=== PATIENT | female | born 1940 | race Caucasian/White ===

== ENCOUNTER 2019-12-10 09:08 | Outpatient (CLI) | payer MEDICARE, OTHER, SELFPAY ==
--- NOTE | 2019-12-10 | US_ITS ---
WS: [id number] ULTRASOUND RENAL TECHNIQUE: Ultrasound examination of both kidneys. CLINICAL INFORMATION: LOWER ABDOMINAL PAIN COMPARISON: None. FINDINGS: RIGHT: Right lower pole renal cyst measuring 3.1 x 2.1 x 2.6 cm Moderate renal cortical atrophy Echogenicity: Normal Hydronephrosis: None. Perinephric fluid: None. Right kidney measures: 10.5 cm x 3.7 cm x 4.3 cm. LEFT: Left upper pole renal cyst measuring 2.0 x 1.9 x 1.8 cm Moderate renal cortical atrophy. Echogenicity: Normal. Hydronephrosis: None. Perinephric fluid: None. Left kidney measures: 9.6 cm x 5.0 cm x 4.1 cm. Normal visualized aorta. Normal bladder. US/US renal BI* [id number] IMPRESSION: 1. No hydronephrosis in either kidney. Moderate renal cortical atrophy. 2. Simple bilateral renal cysts largest in the right measuring 3.1 cm. 3. Normal bladder.
== END 2019-12-10 09:09 | disposition home or self-care (01) ==
LOC: RADOUTREAD 11:35
PROVIDERS: Family Provider Family Medicine; PCP Family Medicine; Visit Provider Family Medicine
DX: Z76.89 Persons encountering health services in other specified circumstances (principal)

== ENCOUNTER 2020-04-21 08:08 | Outpatient (CLI) | payer MEDICARE, OTHER, SELFPAY ==
[2020-04-21 08:25] VITALS: BMI 27.4
--- NOTE | 2020-04-21 08:37 | ECG_ITS ---
NAME OF STUDY: LEXISCAN SESTAMIBI STRESS TEST INDICATION: Chest Pain LEXISCAN STRESS TEST ORDERING PHYSICIAN: Ezequiel CLINICAL INFORMATION: Chest pain INTERPRETATION: 1. The patient was brought to the laboratory where Lexiscan was infused over 20 seconds. The resting blood pressure was 181/93. Maximum blood pressure was 181/93. The resting heart rate was 79 beats per minute. The maximum heart rate is 97 beats per minute. 2. The baseline electrocardiogram reveals sinus rhythm with lack of R waves leads V1 through V3. 3. With Lexiscan infusion, there were no ST segment changes to suggest ischemia. 4. The patient experienced no symptoms or arrhythmias during the examination. CONCLUSION: 1. Unremarkable Lexiscan infusion. 2. Nuclear imaging to follow. Electronically Signed On 04-21-2020 10:58:05 CDT by Gerald Nieves M.D. [email or web address]
--- NOTE | 2020-04-21 08:38 | NMCV_ITS ---
NM raymond perf SPECT r/s* [id number] Latosha Lozano Age: 79 Gender: F : 1940 Exam Date: 04/21/2020 09:40 Ordering Phys: Gerald Nieves MD ([email or web address]) Technologist: MARICRUZ Gross Exam Location: [facility] Indications: CHEST PAIN STRESS TEST Please see separate stress test report in [facility] for full findings IMAGE PROTOCOL Rest/Stress 1 Lexiscan Day Radiopharmaceutical Dose (mCi) Administration Site Administered by Rest: Tc-99m 10.9 IV MARICRUZ Gaming Sestamibi Stress:Tc-99m 32.5 IV MARICRUZ Gaming Sestamibi Rest: 21-Apr-2020 60 Discovery 630 Stress: 21-Apr-2020 30 Discovery 630 0.4mg Lexiscan. Images obtained in supine and prone position. SPECT RESULTS Technical Quality: Excellent Raw Data Analysis: Normal Image Corrections: No attenuation or motion correction applied Summed Stress Score: 0 Summed Rest Score: 0 Summed Difference Score: 0 PERFUSION FINDINGS SPECT images demonstrate homogeneous tracer distribution throughout the myocardium. FUNCTIONAL RESULTS (calculated via Gated SPECT) Stress Image LV EF (%): 83 Stress EDV (mL):35 TID: 0.75 Stress ESV (mL):6 Rest Image LV EF (%): 83 FUNCTIONAL FINDINGS: There is normal left ventricular systolic function. IMPRESSIONS Myocardial perfusion imaging is normal and low probability for obstructive coronary artery disease. EKG segment will be documented separately. Hansel Ruff MD (Electronically Signed) Final Date: 21 April 2020 17:11 S
--- NOTE | 2020-04-21 10:02 | SUR.PREOP ---
Patient reports no pain or discomfort prior to the start of the procedure.
[2020-04-21] MEDS: regadenoson 0.4 Mg/5 ml Syringe IVP (10:17)
[2020-04-21 10:23] VITALS: BP 153/62; PULSE 97
== END 2020-04-21 08:09 | disposition home or self-care (01) ==
LOC: RAD 08:12 → CDL 08:24
PROVIDERS: Family Provider Family Medicine; PCP Family Medicine; Visit Provider Internal Medicine Cardiovascular Disease
DX: R07.9 Chest pain, unspecified (principal)
CPT/HCPCS: 78452; 93017; A9500; J2785

== ENCOUNTER 2020-05-16 12:53 | Outpatient (CLI) | payer MEDICARE, OTHER, SELFPAY ==
--- NOTE | 2020-05-16 13:09 | XRR_ITS ---
PROCEDURE INFORMATION: Exam: XR Chest, 2 Views Exam date and time: 05/16/2020 1:10 PM Age: 79 years old Clinical indication: Shortness of breath; Chest pain; Type not specified TECHNIQUE: Imaging protocol: XR of the chest Views: 2 views. COMPARISON: CR Chest 2 views* [id number] 12/25/2018 1:07 PM FINDINGS: Lungs: Opacification in the bilateral upper lobes of the lung is again identified. No acute pneumonia or edema. Pleural space: Unremarkable. No pleural effusion. No pneumothorax. Heart/Mediastinum: Unremarkable. No cardiomegaly. Bones/joints: There is compression deformity of a midthoracic vertebral body as before. XR/XR chest 2V* [id number] IMPRESSION: There are no acute concerning abnormalities.
[2020-05-16 13:47] LABS: Basophils # 0.1 10^3/uL (0.0-0.1); Basophils % 0.7 %; Eosinophils # 0.4 10^3/uL (0.0-0.8); Eosinophils % 4.1 %; Hematocrit 39.6 % (37.0-47.0); Hemoglobin 12.6 g/dL (11.5-15.3); Lymphocytes # 1.7 10^3/uL (0.8-4.8); Lymphocytes % 20.5 %; Mean Corpuscular HGB Conc 31.8 g/dL (30.0-36.0); Mean Corpuscular Hemoglobin 31.3 pg (28.0-34.0); Mean Corpuscular Volume 98.5 fL (81-99); Mean Platelet Volume 9.7 fL (7.4-10.4); Monocytes % 11.7 %; Neutrophils # 5.3 10^3/uL (1.8-7.7); Neutrophils % 62.8 %; Nucleated Red Blood Cells % 0 %; Platelet Count 275 10^3/cmm (130-400); Red Blood Count 4.02 10^6/uL (4.1-5.3); Red Cell Distribution Width 14.3 % (12.1-15.1); White Blood Count 8.5 10^3/uL (4.0-10.0)
[2020-05-16 14:47] LABS: NT Pro B Type Natriuretic Pept 180 pg/mL (0-450)
[2020-05-17 18:15] LABS: Bermuda Class 0; Bermuda Grass (G2) Ige <0.10 kU/L; Cat Dander (E1) Ige <0.10 kU/L; Cat Dander Class 0; Common Ragweed (Short) (W1) Ig <0.10 kU/L; Dog Dander (E5) Ige <0.10 kU/L; Dog Dander Class 0; Elm (T8) Ige <0.10 kU/L; Elm Class 0; English Plantain (W9) Ige <0.10 kU/L; English Plantain Class 0; Immunoglobulin E 11 kU/L (<OR=114); Johnson Grass (G10) Ige <0.10 kU/L; Johnson Grass Cl 0; June Grass Class 0; June Grass(Kentucky Blue) (G8) <0.10 kU/L; Lamb'S Quarters (Goose Foot) <0.10 kU/L; Lamb'S Quarters Class 0; Maple (Box Elder) (T1) Ige <0.10 kU/L; Maple Class 0; Meadow Fescue (G4) Ige <0.10 kU/L; Meadow Fescue Class 0; Oak (T7) Ige <0.10 kU/L; Oak Class 0; Orchard Grass (Cocksfoot) (G3) <0.10 kU/L; Perennial Rye Grass (G5) Ige <0.10 kU/L; Perennial Rye Grass Class 0; Ragweeed Class 0; Rough Marsh Elder (W16) Ige <0.10 kU/L; Rough Marsh Elder Class 0; Sweet Vernal Class 0; Sweet Vernal Grass (G1) Ige <0.10 kU/L; Timothy Grass (G6) Ige <0.10 kU/L; Timothy Grass Class 0
[2020-05-18 16:56] LABS: Alternaria Alternata (M6) Ige <0.10 kU/L; Alternaria Class 0; D. Farinae Class 0; Dermatophagoides Class 0; Dermatophagoides Farinae (D2) <0.10 kU/L; Dermatophagoides Pteronyssinus <0.10 kU/L; House Dust (Greer) (H1) Ige <0.10 kU/L; House Dust (Hollister- Stier) <0.10 kU/L; House Dust Class 0; Mucor Racemosus Class 0; Penicillium Class 0; Penicillium Notatum (M1) Ige <0.10 kU/L
[2020-05-23 21:14] LABS: Aspergillus Fumigatus, Igg Ab, 12.8 mg/L (<=102)
== END 2020-05-16 12:54 | disposition home or self-care (01) ==
LOC: RAD 12:59
PROVIDERS: Family Provider Family Medicine; PCP Family Medicine; Visit Provider Internal Medicine Critical Care Medicine
DX: J45.909 Unspecified asthma, uncomplicated (principal); R06.02 Shortness of breath; R07.9 Chest pain, unspecified
CPT/HCPCS: 71046; 82785; 83880; 85025; 86003

== ENCOUNTER 2020-05-24 07:00 | Outpatient (CLI) | payer MEDICARE, OTHER, SELFPAY ==
--- NOTE | 2020-05-24 14:06 | PFTS_ITS ---
Date of Study:05/24/20 Date of Dictation: MECHANICS: Forced vital capacity (FVC) is reduced. Forced expiratory volume in one second (FEV1) is reduced. FEV1/FVC is normal. FLOW VOLUME LOOP: There is no peak flow in the forced expiratory loop. LUNG VOLUMES: Total lung capacity (TLC) is normal. Residual volume (RV) is increased. DIFFUSING CAPACITY FOR CARBON MONOXIDE: Mildly reduced. INTERPRETATION: The pulmonary function tests are consistent with nonspecific ventilatory limitation. Spirometry is consistent with mild restriction however the total lung capacity is normal. Gas exchange (DLCO) is mildly reduced. MTDD
== END 2020-05-24 07:01 | disposition home or self-care (01) ==
LOC: RT 07:05
PROVIDERS: PCP Family Medicine; Visit Provider Internal Medicine Critical Care Medicine
DX: R06.02 Shortness of breath (principal)
CPT/HCPCS: 94010; 94726; 94729

== ENCOUNTER → 2020-10-30 11:32 | Outpatient (BNVA) | payer MEDICARE, OTHER, SELFPAY | PROVIDERS: PCP Family Medicine; Visit Provider Specialist | DX: M25.562 Pain in left knee (principal) | CPT/HCPCS: 73560; 73565 ==

== ENCOUNTER → 2021-05-29 10:30 | Outpatient (BNVA) | payer MEDICARE, OTHER, SELFPAY | PROVIDERS: PCP Family Medicine; Referring Provider Internal Medicine Critical Care Medicine; Visit Provider Anesthesiology Pain Medicine | DX: M79.18 Myalgia, other site (principal); M54.6 Pain in thoracic spine; R07.89 Other chest pain; Z87.891 Personal history of nicotine dependence | CPT/HCPCS: 20553; 99204; J1030; J3490 ==

== ENCOUNTER → 2021-06-26 10:35 | Outpatient (BNVA) | payer MEDICARE, OTHER, SELFPAY | PROVIDERS: PCP Family Medicine; Visit Provider Anesthesiology Pain Medicine | DX: G89.29 Other chronic pain (principal); M79.18 Myalgia, other site; M54.6 Pain in thoracic spine; R07.89 Other chest pain | CPT/HCPCS: 20553; 99213; J1030; J3490 ==

== ENCOUNTER 2021-07-04 09:21 | Outpatient (RCR) | payer MEDICARE, OTHER, SELFPAY | END 2021-07-17 23:59 | disposition home or self-care (01) | LOC: SPT 09:21 | PROVIDERS: PCP Family Medicine; Referring Provider Anesthesiology Pain Medicine; Visit Provider Anesthesiology Pain Medicine | DX: M54.5 Low back pain (principal); G89.29 Other chronic pain | CPT/HCPCS: 97110; 97161 ==

== ENCOUNTER → 2022-01-24 15:39 | Outpatient (BNVA) | payer MEDICARE, OTHER, SELFPAY | PROVIDERS: PCP Family Medicine; Visit Provider Internal Medicine Critical Care Medicine | DX: J45.909 Unspecified asthma, uncomplicated (principal); J44.9 Chronic obstructive pulmonary disease, unspecified; Z87.891 Personal history of nicotine dependence; I10 Essential (primary) hypertension; K21.9 Gastro-esophageal reflux disease without esophagitis; E78.5 Hyperlipidemia, unspecified | CPT/HCPCS: 99213 ==

== ENCOUNTER → 2022-02-28 08:49 | Outpatient (BNVA) | payer MEDICARE, OTHER, SELFPAY | PROVIDERS: PCP Family Medicine; Visit Provider Specialist | DX: M17.12 Unilateral primary osteoarthritis, left knee (principal); Z71.89 Other specified counseling; Z87.891 Personal history of nicotine dependence | CPT/HCPCS: 20610; J1100; J2795; J3301 ==

== ENCOUNTER → 2022-03-29 09:25 | Outpatient (BNVA) | payer MEDICARE, OTHER, SELFPAY | PROVIDERS: PCP Family Medicine; Visit Provider Internal Medicine | DX: I25.10 Atherosclerotic heart disease of native coronary artery without angina pectoris (principal); I12.9 Hypertensive chronic kidney disease with stage 1 through stage 4 chronic kidney disease, or unspecified chronic kidney disease; N18.9 Chronic kidney disease, unspecified; J44.9 Chronic obstructive pulmonary disease, unspecified; E78.5 Hyperlipidemia, unspecified; R07.9 Chest pain, unspecified; Z87.891 Personal history of nicotine dependence | CPT/HCPCS: 99214 ==

== ENCOUNTER → 2022-04-18 09:33 | Outpatient (BNVA) | payer MEDICARE, OTHER, SELFPAY | PROVIDERS: PCP Family Medicine; Visit Provider Specialist | DX: M17.12 Unilateral primary osteoarthritis, left knee (principal) | CPT/HCPCS: 20610; 99213; J7326 ==

== ENCOUNTER → 2022-07-25 10:13 | Outpatient (BNVA) | payer MEDICARE, OTHER, SELFPAY | PROVIDERS: PCP Family Medicine; Visit Provider Internal Medicine Critical Care Medicine | DX: J45.909 Unspecified asthma, uncomplicated (principal); J30.9 Allergic rhinitis, unspecified; J82.83 Eosinophilic asthma; Z87.891 Personal history of nicotine dependence | CPT/HCPCS: 99213; 99214 ==

== ENCOUNTER → 2022-08-15 10:07 | Outpatient (BNVA) | payer MEDICARE, OTHER, SELFPAY | PROVIDERS: PCP Family Medicine; Visit Provider Specialist | DX: M17.12 Unilateral primary osteoarthritis, left knee (principal); Z71.89 Other specified counseling | CPT/HCPCS: 20610; J1100; J2795; J3301 ==

== ENCOUNTER → 2022-10-31 09:05 | Outpatient (BNVA) | payer MEDICARE, OTHER, SELFPAY | PROVIDERS: PCP Family Medicine; Visit Provider Specialist | DX: M17.12 Unilateral primary osteoarthritis, left knee (principal); Z71.89 Other specified counseling | CPT/HCPCS: 20610; J7326 ==

== ENCOUNTER → 2022-11-05 10:42 | Outpatient (BNVA) | payer MEDICARE, OTHER, SELFPAY | PROVIDERS: PCP Family Medicine; Referring Provider Family Medicine; Visit Provider Specialist | DX: G62.89 Other specified polyneuropathies (principal) | CPT/HCPCS: 95909; 95911 ==

== ENCOUNTER → 2023-02-06 09:05 | Outpatient (BNVA) | payer MEDICARE, OTHER, SELFPAY | PROVIDERS: PCP Family Medicine; Visit Provider Specialist | DX: M17.12 Unilateral primary osteoarthritis, left knee (principal) | CPT/HCPCS: 20610; 99213; J1100; J2795; J3301 ==

== ENCOUNTER → 2023-03-28 08:54 | Outpatient (BNVA) | payer MEDICARE, OTHER, SELFPAY | PROVIDERS: PCP Family Medicine; Visit Provider Internal Medicine | DX: I12.9 Hypertensive chronic kidney disease with stage 1 through stage 4 chronic kidney disease, or unspecified chronic kidney disease (principal); N18.9 Chronic kidney disease, unspecified; I25.10 Atherosclerotic heart disease of native coronary artery without angina pectoris; J44.9 Chronic obstructive pulmonary disease, unspecified; E78.5 Hyperlipidemia, unspecified; R00.2 Palpitations; R07.9 Chest pain, unspecified; Z87.891 Personal history of nicotine dependence | CPT/HCPCS: 93246; 99214 ==

== ENCOUNTER 2023-04-23 09:51 | Outpatient (CLI) | payer MEDICARE, OTHER, SELFPAY ==
--- NOTE | 2023-04-23 10:15 | USCV_ITS ---
Latosha Lozano Age: 82 Gender: F : 1940 Exam Date: 04/23/2023 10:04 Ordering Phys: Jake Obando M.D ([email or web address]) Technologist: Amanda Canada Exam Location: [facility] Indication: Chest pain and sob BP: 127 / 65 HR: 59 Rhythm: Sinus Technical Quality: Adequate MEASUREMENTS (Male / Female) Normal Values 2D ECHO LV Diastolic Diameter PLAX 3.7 cm 4.2 - 5.9 / 3.9 - 5.3 cm LV Systolic Diameter PLAX 2.6 cm LV Chamber Size 3.5 cm IVS Diastolic Thickness 1.1 cm 0.6 - 1.0 / 0.6 - 0.9 cm IVS Systolic Thickness 1.3 cm LVPW Diastolic Thickness 1.1 cm 0.6 - 1.0 / 0.6 - 0.9 cm LVPW Systolic Thickness 1.4 cm RV Chamber Size 3.1 cm LVOT Diameter 2.1 cm LV Ejection Fraction 2D Teich 55.6 % LV Ejection Fraction MOD 2C 82.3 % LV Ejection Fraction 2C AL 81.7 % LA Diameter 3.8 cm LA Width 2.7 cm LA Height 3.8 cm RA Width 3.1 cm RA Height 4.1 cm Aorta at Sinotubular Diameter 2.3 cm IVC Diameter 1.2 cm M-MODE Aortic Annulus Diameter 2.8 cm LA Ao Ratio MM 1.5 MV E Point Septal Separation 0.6 cm DOPPLER AV Peak Velocity 156.0 cm/s LVOT Peak Velocity 97.0 cm/s AV Area Cont Eq vti 1.9 cm squared AV Area Cont Eq pk 2.1 cm squared MV Peak Velocity 157.0 cm/s MV Area PHT 1.6 cm squared Mitral E to A Ratio 0.9 MV E' Velocity 58.5 cm/s Mitral E to MV E' Ratio 9.5 Mitral E to LV E' Lateral Ratio 11.6 Mitral E to LV E' Septal Ratio 8.0 TR Peak Velocity 245.9 cm/s TR Peak Gradient 24.2 mmHg TR Mean Velocity 196.7 cm/s TR Mean Gradient 17.0 mmHg TR Velocity Time Integral 81.9 cm TV Peak E Velocity 50.0 cm/s Right Atrial Pressure 3.0 mmHg Pulmonary Artery Systolic Pressu 27.2 mmHg RV Acceleration Time 0.2 s RV Ejection Time 0.5 s RV AcT/ET 0.5 FINDINGS Left Ventricle Left ventricle is normal in size. LV systolic function is normal with EF of 60 to 65%. No regional wall motion abnormalities are seen. Grade 1 diastolic dysfunction Right Ventricle Normal in size and function Right Atrium Normal size Left Atrium Normal size Mitral Valve Severe mitral annular calcification. Mild mitral regurgitation. Mild mitral steosis with mean gradient across mitral valve of 4mmHg. Aortic Valve Grossly normal. No significant stenosis. Tricuspid Valve Mild tricuspid regurgitation. Pulmonary artery systolic pressure is normal. Pulmonic Valve Not well visualized Pericardium Normal Aorta Normal in size IVC Appears to be normal CONCLUSIONS LV systolic function is normal with EF of 60 to 65%. Grade 1 diastolic dysfunction. Severe mitral annular calcification seen. Mild mitral regurgitation. Mild mitral stenosis. Mild tricuspid regurgitation Compared to prior echocardiogram from 2019, patient now has mild mitral stenosis. Jake Obando MD (Electronically Signed) Final Date: 26 April 2023 15:42 S
== END 2023-04-23 09:52 | disposition home or self-care (01) ==
LOC: RAD 09:53
PROVIDERS: PCP Family Medicine; Visit Provider Internal Medicine
DX: R06.02 Shortness of breath (principal); I05.2 Rheumatic mitral stenosis with insufficiency; I07.1 Rheumatic tricuspid insufficiency
CPT/HCPCS: 93306

== ENCOUNTER → 2023-04-30 13:02 | Outpatient (BNVA) | payer MEDICARE, OTHER, SELFPAY | PROVIDERS: PCP Family Medicine; Visit Provider Internal Medicine Pulmonary Disease | DX: J45.909 Unspecified asthma, uncomplicated (principal); J30.9 Allergic rhinitis, unspecified; M25.641 Stiffness of right hand, not elsewhere classified; M25.642 Stiffness of left hand, not elsewhere classified; Z87.891 Personal history of nicotine dependence | CPT/HCPCS: 99214 ==

== ENCOUNTER 2023-05-13 08:03 | Outpatient (CLI) | payer MEDICARE, OTHER, SELFPAY | END 2023-05-13 08:04 | disposition home or self-care (01) | LOC: RT 08:04 | PROVIDERS: PCP Family Medicine; Visit Provider Internal Medicine Pulmonary Disease | DX: J44.9 Chronic obstructive pulmonary disease, unspecified (principal); R06.02 Shortness of breath; Z87.891 Personal history of nicotine dependence; R94.2 Abnormal results of pulmonary function studies | CPT/HCPCS: 94010; 94060; 94618; 94726; 94729 ==

== ENCOUNTER 2023-07-08 09:12 | Outpatient (CLI) | payer MEDICARE, OTHER, SELFPAY ==
--- NOTE | 2023-07-08 09:55 | XR_ITS ---
WS: [id number] EXAMINATION: XR chest 2V* [id number] REASON FOR EXAM: shortness of breath COMPARISON: 05/16/2020 ORDER DATE: 07/08/2023 10:02 AM FINDINGS: The 1 cm or larger nodular opacities in the right upper lobe appear essentially the same as on previous study. Smaller nodular opacity in the left upper lobe is present with possibly a new nod ule immediately adjacent to the aortic arch although this could be a confluence of markings. There is increased interstitial thickening from previous study which could be at combination of interstitial edema and chronic lung disease which is also present. There are small bilateral pleural effusions whi ch are new. IMPRESSION: CLINICAL CORRELATION SUGGESTED FOR EARLY INTERSTITIAL EDEMA. Bilateral small effusions ar e new. Possibly new nodule in the medial left upper lobe with other bilateral upper lobe nodules poss ibly stable as noted.
[2023-07-08 10:12] LABS: ABG PH Result 7.43 (7.35-7.45); Blood Gas Allen Test Pos; Blood Gas Sample Site Radial, left; Blood Gas Sample Type Arterial; Carboxyhemoglobin 1.5 %THgb (0.4-20.1); Ionized Calcium Level - ABG 1.2 mmol/L (1.1-1.4); Methemoglobin 0.4 % (0.4-1.5)
[2023-07-08 10:14] LABS: Alveolar-Arterial Oxygen Gradi 6.1 mmHg (5-10); Arterial Blood Gas Hematocrit 28.6 % (37-47); Blood Gas Operator Identificat MONRO; HCO3 ABG 27.7 mmol/L (22-26); HGB O2 Sat 85.9 % (95-100); Oxygen Device ROOM AIR; Oxygen Saturation ABG 87.6; PO2 ABG 51.6 mmHg (80.0-100.0); Total Hemoglobin 9.3 g/dL (12-16)
[2023-07-08 10:29] LABS: Anion Gap 12.1 (5-19); Blood Urea Nitrogen 18 mg/dL (8-23); Carbon Dioxide 29 mmol/L (22-29); Chloride 97 mmol/L (98-107); Glucose 123 mg/dL (65-115); NT Pro B Type Natriuretic Pept 4135 pg/mL (0-450); Osmolality Calculated 281 mOsm/kg (285-295); Potassium 4.1 mmol/L (3.5-5.1); Sodium 134 mmol/L (136-145)
[2023-07-08 10:30] LABS: D Dimer 2.42 ug/mIFEU (0-0.59)
--- NOTE | 2023-07-08 16:50 | CTR_ITS ---
PROCEDURE INFORMATION: Exam: CTA Chest With Contrast Exam date and time: 07/08/2023 4:58 PM Age: 83 years old Clinical indication: Dyspnea and shortness of breath; Patient HX: Shortness of breath, left total knee surgery last Friday. Elevated d-dimer; Additional info: Elevated d dimer TECHNIQUE: Imaging protocol: Computed tomographic angiography of the chest with contrast. Exam focused on the arteries. 3D rendering (Not supervised by radiologist): MIP and/or 3D reconstructed images were created by the technologist. Radiation optimization: All CT scans at this facility use at least one of these dose optimization techniques: automated exposure control; mA and/or kV adjustment per patient size (includes targeted exams where dose is matched to clinical indication); or iterative reconstruction. Contrast material: OMNIPAQUE 350; Contrast volume: 95 ml; Contrast route: INTRAVENOUS (IV); REPORTING DATA: Count of CT and Cardiac NM exams in prior 12 months: This patient has received 0 known CTs and 0 known cardiac nuclear medicine studies in the 12 months prior to the current study. COMPARISON: CR XR chest 2V* [id number] 07/08/2023 10:03 AM RADIATION DOSE METRICS: Total DLP (mGy-cm): 330.83 FINDINGS: Pulmonary arteries: Normal. No pulmonary emboli. Aorta: Mild 4.0 cm aneurysmal dilatation of the ascending thoracic aorta. No aortic dissection. Lungs: Dependent atelectasis in both lungs. Atelectasis or fibrosis in the peripheral upper lobes. Mild scattered ground-glass opacities throughout both lungs. Focal centrilobular opacities in the superior left lower lobe. 6 mm left lower lobe nodule, series 6, image 40. Pleural spaces: Small bilateral pleural effusions. No pneumothorax. Heart: Unremarkable. No cardiomegaly. No pericardial effusion. Lymph nodes: Calcified left hilar lymph nodes. Spleen: Calcified granulomas in the spleen. Kidneys and ureters: Cyst in the superior left kidney, Hounsfield units less than 20. No follow-up imaging recommended. Bones/joints: Degenerative changes of the spine. Diffuse demineralization. T2-T7 and T12 compression fractures. Soft tissues: Unremarkable. CT/CT angio chest PE protcl [id number] IMPRESSION: 1. No evidence for pulmonary embolus. 2. Multilobar ground-glass opacities could represent pulmonary edema or pneumonia. 3. Focal centrilobular opacities in the left lower lobe could represent aspiration or infectious bronchiolitis. 4. Small pleural effusions. 5. 6 mm left pulmonary nodule. For patients at low risk (minimal or absent history of smoking and of other known risk factors), no routine follow-up is indicated. For patients at high risk (history of smoking or of other known risk factors), consider optional CT Chest at 12 months. (Reference: Yvonne) References: Yvonne Hermosillo, et al. Guidelines for Management of Incidental Pulmonary Nodules Detected on CT Images: From the Fleischner Society 2017. Radiology. 2017;284(1):228-243. COMMENTS: Consistent with the [employer] [employer]'s Incidental Findings Committee white paper (J Am Isabel Radiol 2018): Any incidental renal lesion less than 1 cm or classified as too small to characterize, or any incidental cystic renal lesion characterized as simple-appearing, is likely benign. No follow-up imaging is recommended for these lesions per consensus recommendations based on imaging criteria.
[2023-07-08] MEDS: iohexol 350 mg/mL 500 mL Btl (per mL) IV (17:05)
== END 2023-07-08 09:13 | disposition home or self-care (01) ==
PROVIDERS: PCP Family Medicine; Visit Provider Internal Medicine Pulmonary Disease
DX: R06.02 Shortness of breath (principal); R79.1 Abnormal coagulation profile; Z96.652 Presence of left artificial knee joint; R91.8 Other nonspecific abnormal finding of lung field; R91.1 Solitary pulmonary nodule; J90 Pleural effusion, not elsewhere classified; Z98.890 Other specified postprocedural states
CPT/HCPCS: 36415; 36600; 71046; 71275; 80048; 80051; 82330; 82805; 83880; 85378; 99214; Q9967

== ENCOUNTER 2023-07-10 07:39 | Outpatient (CLI) | payer MEDICARE, OTHER, SELFPAY ==
--- NOTE | 2023-07-10 08:00 | USCV_ITS ---
Latosha Lozano Age: 83 Gender: F : 1940 Exam Date: 07/10/2023 08:08 Ordering Phys: Martin Agudelo MD Technologist: VIKTORIA Exam Location: [facility] – [place] Indication: Elevated D-dimer. HISTORY: Lower extremity edema. Lower extremity swelling. Lt Knee replacement surgery 07/02/23 PROCEDURES: Venous duplex imaging was performed in bilateral lower extremities. The following venous structures were evaluated: common femoral vein, profunda vein, proximal portion of the greater saphenous vein, superficial femoral vein, and the popliteal vein. In addition, the posterior tibial and peroneal trunk were evaluated. Serial compression, augmentation maneuvers, and spectral Doppler flow evaluation were performed. FINDINGS: No evidence of DVT seen in any vessel visualized at this time. CONCLUSIONS No evidence of right lower extremity DVT. No evidence of left lower extremity DVT. Benji Guaman MD (Electronically Signed) Final Date: 10 July 2023 11:22 S
== END 2023-07-10 07:40 | disposition home or self-care (01) ==
PROVIDERS: PCP Family Medicine; Visit Provider Internal Medicine Pulmonary Disease
DX: R60.9 Edema, unspecified (principal); R79.1 Abnormal coagulation profile; I74.9 Embolism and thrombosis of unspecified artery; M79.89 Other specified soft tissue disorders
CPT/HCPCS: 93970

== ENCOUNTER → 2023-08-07 08:13 | Outpatient (BNVA) | payer MEDICARE, OTHER, SELFPAY | PROVIDERS: PCP Family Medicine; Referring Provider Family Medicine; Visit Provider Psychiatry & Neurology Neurology | DX: G62.89 Other specified polyneuropathies (principal); M25.641 Stiffness of right hand, not elsewhere classified; M25.642 Stiffness of left hand, not elsewhere classified; R60.0 Localized edema; I21.9 Acute myocardial infarction, unspecified; E55.9 Vitamin D deficiency, unspecified; Z87.891 Personal history of nicotine dependence; I12.9 Hypertensive chronic kidney disease with stage 1 through stage 4 chronic kidney disease, or unspecified chronic kidney disease; N18.9 Chronic kidney disease, unspecified | CPT/HCPCS: 99203 ==

== ENCOUNTER 2023-08-11 08:12 | Outpatient (CLI) | payer MEDICARE, OTHER, SELFPAY ==
[2023-08-11 08:50] LABS: Basophils % 0.6 %; Eosinophils # 0.5 10^3/uL (0.0-0.8); Eosinophils % 7.2 %; Hematocrit 32.3 % (36-47); Lymphocytes # 1.1 10^3/uL (0.8-4.8); Lymphocytes % 16.4 %; Mean Corpuscular HGB Conc 31.3 g/dL (30-55); Mean Corpuscular Hemoglobin 29.9 pg (27-33); Mean Corpuscular Volume 95.6 fl (85-98); Mean Platelet Volume 9.6 fL (7.4-10.4); Monocytes # 0.7 10^3/uL (0.2-0.9); Monocytes % 10.7 %; Neutrophils # 4.47 10^3/uL (1.8-7.7); Neutrophils % 64.7 %; Nucleated Red Blood Cells % 0 %; Platelet Count 334 10^3/cmm (157-399); Red Blood Count 3.38 10^6/uL (3.85-5.65); Red Cell Distribution Width 15.8 % (12.1-15.1); White Blood Count 6.91 10^3/uL (3.29-11.43)
[2023-08-11 09:08] LABS: Estmated Average Glucose 108; Hemoglobin A1C 5.4 % (4.0-6.0)
[2023-08-11 09:11] LABS: Erythrocyte Sedimentation Rate 49 mm/hr (0-15)
[2023-08-11 09:32] LABS: 25 Hydroxy Vitamin D 32 ng/mL (30-100); Alanine Aminotransferase < 5 U/L (0-33); Albumin Level 3.8 g/dL (3.5-5.2); Alkaline Phosphatase 79 U/L (35-105); Anion Gap 12.3 (5-19); Aspartate Amino Transferase 13 U/L (0-32); Blood Urea Nitrogen 19 mg/dL (8-23); Calcium 9.1 mg/dL (8.5-10.5); Carbon Dioxide 29 mmol/L (22-29); Chloride 102 mmol/L (98-107); Globulin 3.2 g/dL (1.3-4.6); Glucose 112 mg/dL (65-115); Osmolality Calculated 291 mOsm/kg (285-295); Potassium 4.3 mmol/L (3.5-5.1); Sodium 139 mmol/L (136-145); Thyroid Stimulating Hormone 1.62 uIU/mL (0.27-4.20); Total Bilirubin 0.5 mg/dL (0.15-1.2); Vitamin B12 397 pg/mL (232-1245)
[2023-08-11 09:42] LABS: Free T4 Free Thyroxine 1.14 ng/dL (0.82-1.77); T3 Free 2.6 PG/ML (2.0-4.4)
[2023-08-11 10:00] LABS: Folate Level > 20.0 ng/mL (4.8-37.3)
[2023-08-12 08:38] LABS: PROTEIN, TOTAL 6.2 g/dL (6.1-8.1)
[2023-08-12 11:19] LABS: CENTROMERE B ANTIBODY <1.0 NEG AI (<1.0 NEG); JO-1 ANTIBODY <1.0 NEG AI (<1.0 NEG); RNP ANTIBODY <1.0 NEG AI (<1.0 NEG); SCL-70 ANTIBODY <1.0 NEG AI (<1.0 NEG); SJOGREN'S ANTIBODY (SS-A) <1.0 NEG AI (<1.0 NEG); SM ANTIBODY <1.0 NEG AI (<1.0 NEG); SS-B <1.0 NEG AI (<1.0 NEG)
[2023-08-12 17:55] LABS: RPR w(Moniotor) w/REFL Titer NON-REACTIVE (NON-REACTIVE)
[2023-08-13 07:23] LABS: THYROID PEROXIDASE ANTIBODIES <1 IU/mL (<9)
[2023-08-13 09:09] LABS: Treponema pallidum Ab NON-REACTIVE (NON-REACTIVE)
[2023-08-13 14:24] LABS: COMPLEMENT, TOTAL (CH50) >60 U/mL (31-60)
[2023-08-13 15:40] LABS: ANA SCREEN, IFA NEGATIVE (NEGATIVE)
[2023-08-13 16:00] LABS: COMPLEMENT COMPONENT C3C 174 mg/dL; COMPLEMENT COMPONENT C4C 41 mg/dL
[2023-08-13 18:59] LABS: ALBUMIN 3.3 g/dL (3.8-4.8); ALPHA 1 GLOBULIN 0.4 g/dL (0.2-0.3); ALPHA 2 GLOBULIN 0.9 g/dL (0.5-0.9); BETA 1 GLOBULIN 0.4 g/dL (0.4-0.6); BETA 2 GLOBULIN 0.4 g/dL (0.2-0.5); GAMMA GLOBULIN 0.8 g/dL (0.8-1.7)
[2023-08-14 15:28] LABS: Methylmalonic Acid 220 nmol/L (87-318)
[2023-08-22 18:05] LABS: DNA AB (DS) CRITHIDIA,IFA NEGATIVE (NEGATIVE)
== END 2023-08-11 08:13 | disposition home or self-care (01) ==
PROVIDERS: PCP Family Medicine; Visit Provider Psychiatry & Neurology Neurology
DX: G62.89 Other specified polyneuropathies (principal); M25.641 Stiffness of right hand, not elsewhere classified; M25.642 Stiffness of left hand, not elsewhere classified; R60.0 Localized edema; E55.9 Vitamin D deficiency, unspecified; I21.9 Acute myocardial infarction, unspecified
CPT/HCPCS: 36415; 80053; 82306; 82607; 82746; 83036; 83735; 83921; 84155; 84165; 84439; 84443; 84481; 85025; 85651; 86140; 86160; 86162; 86235; 86255; 86334; 86376; 86431; 86592; 86780

== ENCOUNTER → 2023-09-01 13:02 | Outpatient (BNVA) | payer MEDICARE, OTHER, SELFPAY | PROVIDERS: PCP Family Medicine; Visit Provider Psychiatry & Neurology Neurology | DX: G62.89 Other specified polyneuropathies (principal); J44.89 Other specified chronic obstructive pulmonary disease; J30.9 Allergic rhinitis, unspecified; M25.641 Stiffness of right hand, not elsewhere classified; M25.642 Stiffness of left hand, not elsewhere classified; Z96.659 Presence of unspecified artificial knee joint; M79.89 Other specified soft tissue disorders; J82.83 Eosinophilic asthma; Z87.891 Personal history of nicotine dependence | CPT/HCPCS: 99212; 99214 ==

== ENCOUNTER → 2023-10-21 10:58 | Outpatient (BNVA) | payer MEDICARE, OTHER, SELFPAY | PROVIDERS: PCP Family Medicine; Visit Provider Internal Medicine Cardiovascular Disease | DX: J44.89 Other specified chronic obstructive pulmonary disease (principal); I25.10 Atherosclerotic heart disease of native coronary artery without angina pectoris; E78.5 Hyperlipidemia, unspecified; I12.9 Hypertensive chronic kidney disease with stage 1 through stage 4 chronic kidney disease, or unspecified chronic kidney disease; N18.9 Chronic kidney disease, unspecified; I25.2 Old myocardial infarction; Z87.891 Personal history of nicotine dependence | CPT/HCPCS: 99213 ==

== ENCOUNTER → 2024-03-08 10:49 | Outpatient (BNVA) | payer MEDICARE, OTHER, SELFPAY | PROVIDERS: PCP Family Medicine; Visit Provider Internal Medicine Pulmonary Disease | DX: J44.89 Other specified chronic obstructive pulmonary disease (principal); R06.02 Shortness of breath; J30.9 Allergic rhinitis, unspecified; M25.641 Stiffness of right hand, not elsewhere classified; M25.642 Stiffness of left hand, not elsewhere classified; Z87.891 Personal history of nicotine dependence | CPT/HCPCS: 99214 ==

== ENCOUNTER → 2024-03-17 10:00 | Outpatient (BNVA) | payer MEDICARE, OTHER, SELFPAY | PROVIDERS: PCP Family Medicine; Visit Provider Internal Medicine Rheumatology | DX: Z79.899 Other long term (current) drug therapy (principal); M47.896 Other spondylosis, lumbar region; M19.042 Primary osteoarthritis, left hand; M19.072 Primary osteoarthritis, left ankle and foot; M15.4 Erosive (osteo)arthritis; M25.641 Stiffness of right hand, not elsewhere classified; M25.642 Stiffness of left hand, not elsewhere classified; Z96.659 Presence of unspecified artificial knee joint | CPT/HCPCS: 36415; 72100; 73130; 73630; 80076; 82565; 83520; 85025; 86200; 99204 ==

== ENCOUNTER 2024-03-21 12:46 | Emergency (ER) | payer MEDICARE, OTHER, SELFPAY ==
[2024-03-21 12:52] VITALS: BP 126/65; PULSE 63; RESP 17; TEMP 37; O2SAT 93
--- NOTE | 2024-03-21 12:54 | XRR_ITS ---
PROCEDURE INFORMATION: Exam: XR Left Shoulder Exam date and time: 03/21/2024 1:35 PM Age: 83 years old Clinical indication: Injury or trauma; Fall; Blunt trauma (contusions or hematomas); Shoulder; Left; Additional info: Fall, shoulder pain TECHNIQUE: Imaging protocol: Radiologic exam of the left shoulder. Views: 2 or more views. COMPARISON: CT angio chest PE protcl [id number] 07/08/2023 4:58 PM FINDINGS: Bones/joints: Acute transverse fracture of the left humeral neck. Soft tissues: Mild soft tissue swelling. XR/XR shoulder LT min 2V* [id number] IMPRESSION: Acute transverse fracture of the left humeral neck.
--- NOTE | 2024-03-21 12:54 | ED_ITS ---
HPI - Extremity Injury (Upper) General: Stated Complaint: LEFT SHOULDER PAIN S/P FALL Time Seen by Provider: 03/21/24 12:52 [facility] ED PFS: Medical History (Updated 03/17/24 @ 10:49 by Josue Fournier MD) High risk medication use Erosive osteoarthritis of both hands DJD (degenerative joint disease), lumbar Peripheral neuropathy GERD (gastroesophageal reflux disease) Gout Primary osteoarthritis of left knee Essential hypertension CAD (coronary artery disease) Hyperlipidemia CKD (chronic kidney disease) COPD (chronic obstructive pulmonary disease) Myocardial infarction Surgical History S/P carpal tunnel release S/P hysterectomy H/O neck surgery S/P knee replacement Family History Mother CAD (coronary artery disease) Father COPD (chronic obstructive pulmonary disease) Social History Smoking and tobacco/nicotine status: never used tobacco/nicotine Quit status (tobacco/nicotine): has quit using Year quit tobacco: 1989 PPD x 6 Years Alcohol intake: never Substance/Drug Use: never Lives independently: Yes Household members: none Marital status: / Current occupational status: retired Do you think of yourself as: Straight/Heterosexual Current gender identity: Female Discharge Plan Discharge Condition: Stable Prescriptions: No Action allopurinol 100 mg tablet 100 mg PO DAILY aspirin [Aspir-81] 81 mg tablet,delayed release (DR/EC) 81 mg PO BID albuterol sulfate [Ventolin HFA] 90 mcg/actuation HFA aerosol inhaler 2 puff INHALATION Q6H PRN simvastatin 20 mg tablet 20 mg PO DAILY omeprazole 40 mg capsule,delayed release(DR/EC) 40 mg PO DAILY acetaminophen-codeine 300-15 mg tablet 1 tab PO Q8H PRN metoprolol tartrate 25 mg tablet 50 mg PO BID prednisone 10 mg tablet See Rx Instructions PO .COMPLEX PRN (Reason: joint pain) Qty: 30 1RF Rx Instructions: take 1-4 tab daily as needed for up to 7 days prn joint pain flare PO PRN; gabapentin 300 mg capsule 600 mg PO QID latanoprost 0.005 % drops 1 drp ophthalmic (eye) DAILY furosemide 20 mg tablet 20 mg PO .every other day Qty: 45 3RF fluticasone propion-salmeterol [Advair Diskus] 500-50 mcg/dose blister with device 1 inh inhalation Q12H Qty: 60 3RF amlodipine 5 mg tablet 5 mg PO DAILY Qty: 180 3RF potassium chloride 8 mEq tablet extended release 8 meq PO .every other day Qty: 90 3RF Referrals: Reggie Reeves MD [Primary Care Provider] - Coding Level of Care Code ED [employer] for Bhanu Lennon
--- NOTE | 2024-03-21 13:34 | XRR_ITS ---
PROCEDURE INFORMATION: Exam: XR Left Hip Exam date and time: 03/21/2024 1:41 PM Age: 83 years old Clinical indication: Injury or trauma; Fall; Blunt trauma (contusions or hematomas); Left; Hip; Additional info: Fall, left hip pain. With pelvis TECHNIQUE: Imaging protocol: Radiologic exam of the left hip. Views: 2 or 3 views hip with pelvis when performed. COMPARISON: CR XR lumbar spine 2-3V* [id number] 03/17/2024 10:20 AM FINDINGS: Bones/joints: Chronic degenerative changes, mild osteoarthritis of the hip joints. No acute fracture. Soft tissues: Unremarkable. XR/XR hip LT 2-3V wo/w pel* [id number] IMPRESSION: No acute fracture.
[2024-03-21 14:58] VITALS: BP 123/60; PULSE 65; RESP 18; O2SAT 96
--- NOTE | 2024-03-21 15:04 | ED_ITS ---
HPI - Extremity Problem General: Chief complaint: Extremity Injury, Upper Stated complaint: LEFT SHOULDER PAIN S/P FALL Time Seen by Provider: 03/21/24 12:52 History of Present Illness: 83-year-old female who tripped and fell onto her left shoulder. She is having fairly severe left shoulder pain and difficulty moving her left shoulder. No obvious deformity. She did not hit her head. No neck pain. She is having some left hip pain. She says she always has arthritic pain there but it is a little bit worse now. No obvious deformity. No shortening or rotation. No chest pain. No shortness of breath. No abdominal pain. No nausea or vomiting. Review of Systems Narrative: Constitutional symptoms: Negative except as documented in HPI. Skin symptoms: Negative except as documented in HPI. Eye symptoms: Negative except as documented in HPI. ENMT symptoms: Negative except as documented in HPI. Respiratory symptoms: Negative except as documented in HPI. Cardiovascular symptoms: Negative except as documented in HPI. Gastrointestinal symptoms: Negative except as documented in HPI. Genitourinary symptoms: Negative except as documented in HPI. Musculoskeletal symptoms: Negative except as documented in HPI. Neurologic symptoms: Negative except as documented in HPI. Psychiatric symptoms: Negative except as documented in HPI. Endocrine symptoms: Negative except as documented in HPI. PFS ED PFSH: Medical History (Updated 03/21/24 @ 14:32 by Kristi Pate MD) High risk medication use Erosive osteoarthritis of both hands DJD (degenerative joint disease), lumbar Peripheral neuropathy GERD (gastroesophageal reflux disease) Gout Primary osteoarthritis of left knee Essential hypertension CAD (coronary artery disease) Hyperlipidemia CKD (chronic kidney disease) COPD (chronic obstructive pulmonary disease) Myocardial infarction Surgical History S/P carpal tunnel release S/P hysterectomy H/O neck surgery S/P knee replacement Family History Mother CAD (coronary artery disease) Father COPD (chronic obstructive pulmonary disease) Social History Smoking and tobacco/nicotine status: never used tobacco/nicotine Quit status (tobacco/nicotine): has quit using Year quit tobacco: 1989 - PPD x 6 Years Alcohol intake: never Substance/Drug Use: never Lives independently: Yes Household members: none Marital status: / Current occupational status: retired Do you think of yourself as: Straight/Heterosexual Current gender identity: Female Physical Exam Narrative: EXAM NARRATIVE: General: Alert, no acute distress. Skin: Warm, dry. Head: Normocephalic, atraumatic. Neck: Supple, trachea midline. Eye: Extraocular movements are intact. Ears, nose, mouth and throat: mucosa moist. Cardiovascular: Regular, Normal peripheral perfusion. Respiratory: Lungs are clear to auscultation, respirations are non-labored, breath sounds are equal, Symmetrical chest wall expansion. Gastrointestinal: Soft, Nontender, Non distended, Normal bowel sounds. Musculoskeletal: Limited range of motion of left shoulder. Patient does appear to have some swelling. She is tender to palpation proximally. No shortening or rotation of left leg Neurological: Alert and oriented, No focal neurological deficit observed. Psychiatric: Cooperative, appropriate mood & affect. Course Vital Signs: Vital signs: Vital Signs Temperature 98.6 F 03/21/24 12:52 Pulse Rate 63 03/21/24 12:52 Respiratory Rate 17 03/21/24 12:52 Blood Pressure 126/65 03/21/24 12:52 Pulse Oximetry 93 03/21/24 12:52 Oxygen Delivery Me thod Room Air 03/21/24 12:52 MDM - Extremity (Nontraumatic) Medical Decision Making X-ray of the left shoulder and left hip were ordered to rule out fractures. X-ray of left shoulder shows a proximal humerus fracture. Hip and pelvis have no fractures. Consultation: I spoke with Dr. Childress with orthopedics. He recommends sling and follow-up in clinic. Assessment and plan: Proximal humerus fracture -IV morphine and Zofran in the emergency room -Sling placed. - Discharged home - Discussed plan with patient. Answered any questions. - Evaluation and treatment of this problem were appropriate in the emergency setting. Lab Data Radiology Impressions Shoulder X-Ray 03/21/24 12:54 IMPRESSION: Acute transverse fracture of the left humeral neck. Hip/Pelvis X-Ray 03/21/24 13:34 IMPRESSION: No acute fracture. All radiology interpretation(s) finalized by discharge Discharge Plan Discharge Patient Disposition: Home Clinical Impression: Proximal humerus fracture Condition: Stable Prescriptions: New hydrocodone-acetaminophen 5-325 mg tablet 1 tab PO Q6H PRN (Reason: pain) Qty: 20 0RF ondansetron 8 mg tablet,disintegrating 8 mg PO .q6 PRN (Reason: nausea and vomiting) Qty: 14 0RF Miralax 17 gram/dose powder 17 g PO DAILY Qty: 510 0RF Rx Instructions: Take 1 scoop daily while taking pain medications. No Action allopurinol 100 mg tablet 100 mg PO DAILY aspirin [Aspir-81] 81 mg tablet,delayed release (DR/EC) 81 mg PO BID albuterol sulfate [Ventolin HFA] 90 mcg/actuation HFA aerosol inhaler 2 puff INHALATION Q6H PRN simvastatin 20 mg tablet 20 mg PO DAILY omeprazole 40 mg capsule,delayed release(DR/EC) 40 mg PO DAILY acetaminophen-codeine 300-15 mg tablet 1 tab PO Q8H PRN metoprolol tartrate 25 mg tablet 50 mg PO BID prednisone 10 mg tablet See Rx Instructions PO .COMPLEX PRN (Reason: joint pain) Qty: 30 1RF Rx Instructions: take 1-4 tab daily as needed for up to 7 days prn joint pain flare PO PRN; gabapentin 300 mg capsule 600 mg PO QID latanoprost 0.005 % drops 1 drp ophthalmic (eye) DAILY furosemide 20 mg tablet 20 mg PO .every other day Qty: 45 3RF fluticasone propion-salmeterol [Advair Diskus] 500-50 mcg/dose blister with device 1 inh inhalation Q12H Qty: 60 3RF amlodipine 5 mg tablet 5 mg PO DAILY Qty: 180 3RF potassium chloride 8 mEq tablet extended release 8 meq PO .every other day Qty: 90 3RF Discharge Orders: Discharge ED (Routine); Ordered 03/21/24 Ordered By: Kristi Pate Referrals: Carlos Childress DO [Physician] - 4-7 days (Call for appointment tomorrow morning.) Reggie Reeves MD [Primary Care Provider] - (You have been screened and evaluated and felt safe for discharge. Health conditions do change or evolve sometimes and as such it is important that you follow up with your Primary Doctor to be re checked, 3-5 days is a general good time frame for follow up. 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
[2024-03-21] MEDS: HYDROcodone-acetaminophen 5-325 mg Tablet 1 TAB PO (15:20)
[2024-03-21] MEDS: ondansetron 4 MG Tablet PO (15:20)
--- NOTE | 2024-03-21 15:56 | CTR_ITS ---
PROCEDURE INFORMATION: Exam: CT Head Without Contrast Exam date and time: 03/21/2024 4:20 PM Age: 83 years old Clinical indication: Altered mental status/memory loss; Confusion or disorientation; Additional info: Encephalopathy, altered mental status TECHNIQUE: Imaging protocol: Computed tomography of the head without contrast. Radiation optimization: All CT scans at this facility use at least one of these dose optimization techniques: automated exposure control; mA and/or kV adjustment per patient size (includes targeted exams where dose is matched to clinical indication); or iterative reconstruction. COMPARISON: US ROR carotid duplex BI 01/24/2022 9:14 AM RADIATION DOSE METRICS: Total DLP (mGy-cm): 1071.48 FINDINGS: Brain: Normal. No hemorrhage. Unremarkable white matter. No mass effect. Cerebral ventricles: Age-related diffuse cortical atrophic changes with compensatory ventricular dilatation. Paranasal sinuses: Visualized sinuses are unremarkable. No fluid levels. Mastoid air cells: Visualized mastoid air cells are well aerated. Bones: Unremarkable. No acute fracture. Soft tissues: Unremarkable. CT/CT head wo con* [id number] IMPRESSION: No acute intracranial abnormality.
--- NOTE | 2024-03-21 15:58 | ECG_ITS ---
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 Measurements Intervals [place] Rate: 63 P: 42 AL: 158 QRS: -2 QRSD: 82 T: 54 QT: 419 QTc: 431 Interpretive Statements SINUS RHYTHM LOW QRS VOLTAGE IN PRECORDIAL LEADS [QRS DEFLECTION < 1.0 mV IN CHEST LEADS] No previous ECG available for comparison Electronically Signed On 03-22-2024 10:56:34 CDT by Jake Obando M.D. [id number] f
--- NOTE | 2024-03-21 16:25 | PC.NURSE ---
upon helping patient to wheelchair for discharge, patient became very dizzy and nauseated. pt stated she did not feel right. doctor raffi was notified and came to patient room. new orders placed by doctor nugent. ekg done, vital signs taken.
[2024-03-21] MEDS: sodium chloride 0.9% 1,000 ML 999 ML IV (16:45)
[2024-03-21 16:49] VITALS: BP 87/43; PULSE 64; RESP 16; O2SAT 94
[2024-03-21 16:52] LABS: Basophils % 0.2 %; Eosinophils # 0.1 10^3/uL (0.0-0.8); Eosinophils % 0.9 %; Hematocrit 33.7 % (36-47); Lymphocytes # 1.7 10^3/uL (0.8-4.8); Lymphocytes % 10.5 %; Mean Corpuscular HGB Conc 32.6 g/dL (30-55); Mean Corpuscular Hemoglobin 31.8 pg (27-33); Mean Corpuscular Volume 97.4 fl (85-98); Mean Platelet Volume 10.5 fL (7.4-10.4); Monocytes # 1.3 10^3/uL (0.2-0.9); Monocytes % 7.9 %; Neutrophils # 12.99 10^3/uL (1.8-7.7); Neutrophils % 79.9 %; Nucleated Red Blood Cells % 0 %; Platelet Count 242 10^3/cmm (157-399); Red Blood Count 3.46 10^6/uL (3.85-5.65); Red Cell Distribution Width 15.8 % (12.1-15.1); White Blood Count 16.24 10^3/uL (3.29-11.43)
[2024-03-21 17:15] LABS: Alanine Aminotransferase 19 U/L (0-33); Albumin Level 3.9 g/dL (3.5-5.2); Alkaline Phosphatase 75 U/L (35-105); Anion Gap 14.4 (5-19); Aspartate Amino Transferase 22 U/L (0-32); Blood Urea Nitrogen 39 mg/dL (8-23); Calcium 8.8 mg/dL (8.5-10.5); Carbon Dioxide 25 mmol/L (22-29); Chloride 105 mmol/L (98-107); Globulin 2.8 g/dL (1.3-4.6); Glucose 147 mg/dL (65-115); Osmolality Calculated 302 mOsm/kg (285-295); Potassium 4.4 mmol/L (3.5-5.1); Sodium 140 mmol/L (136-145); Total Bilirubin 0.3 mg/dL (0.15-1.2); Total Protein 6.7 g/dL (6.6-8.7)
[2024-03-21 17:16] LABS: Creatinine Clr Calc Pharmacy 28.2679
[2024-03-21 17:18] LABS: Troponin(5th) Baseline 105 ng/L (0-10)
--- NOTE | 2024-03-21 17:56 | ECG_ITS ---
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 Measurements Intervals [place] Rate: 66 P: 46 ND: 166 QRS: -11 QRSD: 86 T: 58 QT: 410 QTc: 432 Interpretive Statements SINUS RHYTHM Compared to ECG 03/21/2024 15:58:57 No significant changes Electronically Signed On 03-22-2024 10:58:20 CDT by Jake Obando M.D. [email or web address] [email or web address] [email or web address] Logiccleveland clinic mercy hospitalIndependent Stock [email or web address]/store/[id number]
[2024-03-21 18:00] VITALS: BP 109/59; PULSE 66; RESP 16; O2SAT 94
[2024-03-21 18:35] LABS: Troponin 5 2HR 96.56 ng/L (0-10); Troponin 5 2HR Delta -8.44 ABS# (0-10)
[2024-03-21 19:16] VITALS: BP 109/59; PULSE 66; RESP 16; TEMP 37; O2SAT 94
== END 2024-03-21 19:17 | disposition home or self-care (01) ==
PROVIDERS: Emergency Provider Emergency Medicine; PCP Family Medicine
DX: S42.292A Other displaced fracture of upper end of left humerus, initial encounter for closed fracture (principal); Z79.82 Long term (current) use of aspirin; Z87.891 Personal history of nicotine dependence; I12.9 Hypertensive chronic kidney disease with stage 1 through stage 4 chronic kidney disease, or unspecified chronic kidney disease; N18.9 Chronic kidney disease, unspecified; I25.10 Atherosclerotic heart disease of native coronary artery without angina pectoris; E78.5 Hyperlipidemia, unspecified; J44.9 Chronic obstructive pulmonary disease, unspecified; I25.2 Old myocardial infarction; R55 Syncope and collapse; W01.0XXA Fall on same level from slipping, tripping and stumbling without subsequent striking against object, initial encounter
CPT/HCPCS: 70450; 73030; 73502; 80053; 84484; 85025; 93005; 96360; 99285; J7030; Q0162

== ENCOUNTER → 2024-03-26 10:57 | Outpatient (BNVA) | payer MEDICARE, OTHER, SELFPAY | PROVIDERS: PCP Family Medicine; Referring Provider Emergency Medicine; Visit Provider Student in an Organized Health Care Education/Training Program | DX: S32.592A Other specified fracture of left pubis, initial encounter for closed fracture; S42.202A Unspecified fracture of upper end of left humerus, initial encounter for closed fracture; W19.XXXA Unspecified fall, initial encounter | CPT/HCPCS: 23600; 72190; 72192; 73030; 99204 ==

== ENCOUNTER 2024-03-26 14:22 | Outpatient (CLI) | payer MEDICARE, OTHER, SELFPAY ==
--- NOTE | 2024-03-26 15:30 | CTR_ITS ---
PROCEDURE INFORMATION: Exam: CT Pelvis Without Contrast; Skeletal Exam date and time: 03/26/2024 2:37 PM Age: 83 years old Clinical indication: Pain and injury or trauma; Fall; Fracture of pelvis & hip; Left; Not specified; Pubis (pubic symphysis or rami); Pelvic pain; Injury date: 03/21/2024; Additional info: Pupic ramus fracture TECHNIQUE: Imaging protocol: Computed tomography of the pelvis without contrast. Exam focused on the skeleton. Radiation optimization: All CT scans at this facility use at least one of these dose optimization techniques: automated exposure control; mA and/or kV adjustment per patient size (includes targeted exams where dose is matched to clinical indication); or iterative reconstruction. COMPARISON: CR XR pelvis min 3V [id number] 03/26/2024 12:26 PM RADIATION DOSE METRICS: Total DLP (mGy-cm): 308.75 FINDINGS: Bones/joints: No acute fracture. No dislocation. Soft tissues: Unremarkable. CT/CT pelvis wo con [id number] IMPRESSION: No acute findings.
== END 2024-03-26 14:23 | disposition home or self-care (01) ==
LOC: RAD 14:22
PROVIDERS: PCP Family Medicine; Visit Provider Student in an Organized Health Care Education/Training Program
DX: S32.592A Other specified fracture of left pubis, initial encounter for closed fracture (principal); W19.XXXA Unspecified fall, initial encounter
CPT/HCPCS: 23600; 72192; 99204

== ENCOUNTER 2024-04-29 09:18 | Outpatient (CLI) | payer MEDICARE, OTHER, SELFPAY ==
--- NOTE | 2024-04-29 09:19 | XRR_ITS ---
PROCEDURE INFORMATION: Exam: XR Chest Exam date and time: 04/29/2024 7:28 AM Age: 83 years old Clinical indication: Pain; Pleuordynia; Patient HX: Congestion for a few weeks, recently lost voice; Additional info: Pleuritic pain TECHNIQUE: Imaging protocol: Radiologic exam of the chest. Views: 2 views. COMPARISON: CT angio chest PE protcl [id number] 07/08/2023 4:58 PM FINDINGS: Lungs: Both lungs demonstrate diffuse interstitial coarsening which is felt to be chronic. No lung mass or infiltrate. Pleural spaces: Unremarkable. No pleural effusion. No pneumothorax. Heart/Mediastinum: Unremarkable. No cardiomegaly. Bones/joints: There is an acute displaced humeral head fracture on the left. Multiple old compression fractures are noted in the thoracic spine. XR/XR chest 2V* [id number] IMPRESSION: Acute left humeral head fracture. No other acute disease noted.
== END 2024-04-29 09:19 | disposition home or self-care (01) ==
LOC: RADOUTREAD 09:18
PROVIDERS: PCP Family Medicine; Visit Provider Family Medicine
DX: S42.202A Unspecified fracture of upper end of left humerus, initial encounter for closed fracture (principal); S32.592A Other specified fracture of left pubis, initial encounter for closed fracture; W19.XXXA Unspecified fall, initial encounter
CPT/HCPCS: 72190; 73030; 99213

== ENCOUNTER → 2024-08-31 13:35 | Outpatient (BNVA) | payer MEDICARE, OTHER, SELFPAY | PROVIDERS: PCP Family Medicine; Visit Provider Student in an Organized Health Care Education/Training Program | DX: S32.592A Other specified fracture of left pubis, initial encounter for closed fracture (principal); S42.202A Unspecified fracture of upper end of left humerus, initial encounter for closed fracture; X58.XXXA Exposure to other specified factors, initial encounter | CPT/HCPCS: 72190; 73030; 99213 ==

== ENCOUNTER → 2024-09-07 09:16 | Outpatient (BNVA) | payer MEDICARE, OTHER, SELFPAY | PROVIDERS: PCP Family Medicine; Visit Provider Internal Medicine Rheumatology | DX: M15.4 Erosive (osteo)arthritis (principal); Z79.899 Other long term (current) drug therapy; M25.641 Stiffness of right hand, not elsewhere classified; M25.642 Stiffness of left hand, not elsewhere classified; Z96.659 Presence of unspecified artificial knee joint; J44.89 Other specified chronic obstructive pulmonary disease; N18.9 Chronic kidney disease, unspecified | CPT/HCPCS: 36415; 80076; 82565; 85025; 85651; 86140; 86480; 86704; 86803; 87340; 99214 ==

== ENCOUNTER → 2024-09-14 14:30 | Outpatient (BNVA) | payer MEDICARE, OTHER, SELFPAY | PROVIDERS: PCP Family Medicine; Visit Provider Internal Medicine Rheumatology | DX: M25.552 Pain in left hip; Z71.89 Other specified counseling | CPT/HCPCS: 20610 ==

== ENCOUNTER → 2024-10-25 15:25 | Outpatient (BNVA) | payer MEDICARE, OTHER, SELFPAY | PROVIDERS: PCP Family Medicine; Visit Provider Internal Medicine Cardiovascular Disease | DX: I25.10 Atherosclerotic heart disease of native coronary artery without angina pectoris (principal); I10 Essential (primary) hypertension; R07.9 Chest pain, unspecified; I25.2 Old myocardial infarction; I51.81 Takotsubo syndrome; R06.09 Other forms of dyspnea; E78.5 Hyperlipidemia, unspecified; I34.0 Nonrheumatic mitral (valve) insufficiency; Z87.891 Personal history of nicotine dependence | CPT/HCPCS: 99213 ==

== ENCOUNTER 2024-11-23 14:05 | Outpatient (CLI) | payer MEDICARE, OTHER, SELFPAY ==
--- NOTE | 2024-11-23 14:15 | USCV_ITS ---
Latosha Lozano Age: 84 Gender: F : 1940 Exam Date: 11/23/2024 14:31 Ordering Phys: Hansel Ruff MD ([email or web address]) Technologist: CT Exam Location: [facility] [place] Indication: BP: 120 / 70 HR: 82 Rhythm: Sinus Technical Quality: Adequate MEASUREMENTS (Male / Female) Normal Values 2D ECHO LVOT Diameter 2.0 cm LV Ejection Fraction MOD 4C 64.3 % LV Ejection Fraction MOD 2C 29.9 % LV Ejection Fraction 2C AL 37.3 % LA Diameter 3.6 cm RA Systolic Volume 4C AL 33.3 ml RA Systolic Volume 4C MOD 33.0 ml LA Sys Volume AL 47.6 cm cubed LA Sys Volume Index AL 24.8 cm cubed/m squared Aorta at Sinotubular Diameter 2.7 cm IVC Diameter 1.4 cm M-MODE LA Ao Ratio MM 1.3 AV Cusp Separation MM 1.5 cm DOPPLER AV Peak Velocity 144.0 cm/s LVOT Peak Velocity 101.0 cm/s AV Area Cont Eq vti 3.0 cm squared AV Area Cont Eq pk 2.2 cm squared MV Peak Velocity 189.0 cm/s MV Area PHT 1.6 cm squared Mitral E to A Ratio 0.6 TV Peak Velocity 254.5 cm/s TR Peak Velocity 256.0 cm/s TR Peak Gradient 26.2 mmHg TR Mean Velocity 203.0 cm/s TR Mean Gradient 17.6 mmHg TR Velocity Time Integral 77.0 cm TV Peak E Velocity 61.0 cm/s PV Peak Velocity 92.5 cm/s FINDINGS Left Ventricle Technically limited quality echocardiogram because of poor ultrasonic windows. LV systolic function is normal with EF of 55-60%. No regional wall motion abnormalities are seen. Grade 1 diastolic dysfunction Right Ventricle Normal in size and function Right Atrium Normal in size Left Atrium Normal in size Mitral Valve Severe mitral annular calcification. Mild mitral regurgitation. Moderate mitral stenosis with mitral mean gradient of 6.7 mmHg. Aortic Valve Grossly normal. No significant stenosis Tricuspid Valve Mild tricuspid regurgitation. Pulmonary artery systolic pressure is normal. Pulmonic Valve Not well visualized Pericardium Normal Aorta Normal in size IVC Appears to be normal CONCLUSIONS Technically limited quality echocardiogram because of poor ultrasonic windows. LV systolic function is normal with EF of 55 to 60%. Grade 1 diastolic dysfunction Mild mitral regurgitation Moderate mitral stenosis. Mild tricuspid regurgitation Jake Obando MD (Electronically Signed) Final Date: 26 November 2024 12:29 S
== END 2024-11-23 14:06 | disposition home or self-care (01) ==
LOC: RAD 14:07
PROVIDERS: PCP Family Medicine; Visit Provider Internal Medicine Cardiovascular Disease
DX: I50.30 Unspecified diastolic (congestive) heart failure (principal); I34.2 Nonrheumatic mitral (valve) stenosis; I34.81 Nonrheumatic mitral (valve) annulus calcification; R06.02 Shortness of breath; R07.9 Chest pain, unspecified
CPT/HCPCS: 93306

== ENCOUNTER → 2024-12-08 11:15 | Outpatient (BNVA) | payer MEDICARE, OTHER, SELFPAY | PROVIDERS: PCP Family Medicine; Visit Provider Internal Medicine Cardiovascular Disease | DX: I34.2 Nonrheumatic mitral (valve) stenosis (principal); I25.10 Atherosclerotic heart disease of native coronary artery without angina pectoris; I51.81 Takotsubo syndrome; R00.2 Palpitations; R60.9 Edema, unspecified; Z87.891 Personal history of nicotine dependence; I12.9 Hypertensive chronic kidney disease with stage 1 through stage 4 chronic kidney disease, or unspecified chronic kidney disease; N18.9 Chronic kidney disease, unspecified | CPT/HCPCS: 99214 ==

== ENCOUNTER 2025-04-16 05:53 | Inpatient (IN) | payer MEDICARE, OTHER, SELFPAY ==
[2025-04-16] VITALS (10 sets, daily range): BP systolic 129–172; BP diastolic 68–86; PULSE 57–80; RESP 16–18; TEMP 36.4–36.7; O2SAT 59–94; BMI 28.3
--- NOTE | 2025-04-16 06:13 | XRR_ITS ---
PROCEDURE INFORMATION: Exam: XR Chest Exam date and time: 04/16/2025 6:17 AM Age: 84 years old Clinical indication: Dyspnea; Additional info: Weakness TECHNIQUE: Imaging protocol: Radiologic exam of the chest. Views: 1 view. COMPARISON: CR XR chest 2V* [id number] 04/29/2024 7:28 AM FINDINGS: Lungs: COPD changes. Subtle increased opacification of the right lung apex which appears similar in caliber from multiple prior comparisons. Pleural spaces: Unremarkable. No pleural effusion. No pneumothorax. Heart/Mediastinum: Unremarkable. No cardiomegaly. Bones/joints: Chronic posttraumatic change of the left humerus. XR/XR chest 1V portable [id number] IMPRESSION: No acute cardiopulmonary findings.
--- NOTE | 2025-04-16 06:13 | CTR_ITS ---
PROCEDURE INFORMATION: Exam: CT Head Without Contrast Exam date and time: 04/16/2025 6:16 AM Age: 84 years old Clinical indication: Stroke-like symptoms; Altered mental status/memory loss; Additional info: Symptoms of acute stroke TECHNIQUE: Imaging protocol: Computed tomography of the head without contrast. Radiation optimization: All CT scans at this facility use at least one of these dose optimization techniques: automated exposure control; mA and/or kV adjustment per patient size (includes targeted exams where dose is matched to clinical indication); or iterative reconstruction. Other technique: STROKE PROTOCOL was implemented. COMPARISON: CT head wo con* [id number] 03/21/2024 4:20 PM RADIATION DOSE METRICS: Total DLP (mGy-cm): 994.48 FINDINGS: Brain: Intracranial calcified atherosclerotic disease. Mineralization along the right basal ganglia. Cerebral ventricles: No ventriculomegaly. Paranasal sinuses: Visualized sinuses are unremarkable. No fluid levels. Mastoid air cells: Visualized mastoid air cells are well aerated. Bones: Unremarkable. No acute fracture. Soft tissues: Unremarkable. CT/CT head thrombolytic [id number] IMPRESSION: No acute intracranial findings. ASSESSMENT: ASPECTS ([place] Stroke Program Early CT Score) is 10.
--- NOTE | 2025-04-16 06:16 | W.ED.HA ---
HPI - Headache General: Chief Complaint: Headache Stated Complaint: headache Time Seen by Provider: 04/16/25 06:04 History of Present Illness: Chief complaint is headache and trouble walking. The patient states that she went to bed at 9 PM and felt normal except for she has been on medication for poison lenny which she states is starting to dry up. The poison lenny is on both her arms. She states that she has been on steroids. She states she woke up at 3 AM with a bad headache on the right side of her sabianism. She states it was a normal headache for her. It did not radiate. She states that she also knows she had some sinus congestion and she felt like the right side of her face was puffy. She states that she tried to get up and walk and she cannot walk. She states that this morning she could walk much better and her headache is just mild but she still felt like she had some numbness or puffiness of the right side of her face and she was still having more trouble walking than normal due to what she felt like was trouble with the right side of her body. She states it is markedly improved compared to what it was. She states that she also feels like her speech is off more than normal. She denies any fall trauma or injury. No fever that she is aware of. She states she has no send new sinus congestion drainage since she woke up 3 AM this morning. She has chronic shortness of breath from her COPD which is mildly worse than her baseline. No chest pain or chest discomfort. No abdominal pain. No extremity pain or swelling. Related Data Home Medications ?Medication ?Instructions ?Recorded ?Confirmed acetaminophen 300 mg-codeine 15 mg 1 tab PO Q8H PRN 04/11/20 12/08/24 tablet albuterol sulfate 90 mcg/actuation 2 puff inhalation Q6H PRN 04/11/20 12/08/24 aerosol inhaler (Ventolin HFA) allopurinol 100 mg tablet 100 mg PO DAILY 04/11/20 12/08/24 omeprazole 40 mg capsule,delayed 40 mg PO DAILY 04/11/20 12/08/24 release simvastatin 20 mg tablet 20 mg PO DAILY 04/11/20 12/08/24 metoprolol tartrate 25 mg tablet 50 mg PO BID 01/24/22 12/08/24 latanoprost 0.005 % eye drops 1 drp ophthalmic (eye) DAILY 02/06/23 12/08/24 aspirin 81 mg tablet,delayed 81 mg PO BID 07/08/23 12/08/24 release (Aspir-) gabapentin 300 mg capsule 600 mg PO QID 07/08/23 12/08/24 multivitamin 1 tab PO DAILY 08/31/24 12/08/24 fluticasone 500 mcg-salmeterol 50 1 inh inhalation Q12H PRN 12/08/24 12/08/24 mcg/dose blistr powdr for inhalation (Advair Diskus) glucosamine sulfate 1,000 mg 1,000 mg PO DAILY 12/08/24 12/08/24 capsule Previous Rx's ?Medication ?Instructions ?Recorded amlodipine 5 mg tablet 5 mg PO DAILY #180 tabs 06/03/22 potassium chloride 20 mEq 8 meq (0.4 x 20 mEq) PO DAILY #90 10/25/24 tablet,extended release tabs furosemide 20 mg tablet 20 mg PO DAILY #45 tabs 11/01/24 Allergies Allergy/AdvReac Type Severity Reaction Status Date / Time No Known Allergies Allergy Verified 12/08/24 11:31 [facility] PFS: Medical History High risk medication use Erosive osteoarthritis of both hands DJD (degenerative joint disease), lumbar Peripheral neuropathy GERD (gastroesophageal reflux disease) Gout Primary osteoarthritis of left knee Essential hypertension CAD (coronary artery disease) Hyperlipidemia CKD (chronic kidney disease) COPD (chronic obstructive pulmonary disease) Myocardial infarction Surgical History S/P carpal tunnel release S/P hysterectomy H/O neck surgery S/P knee replacement Family History Mother CAD (coronary artery disease) Father COPD (chronic obstructive pulmonary disease) Social History (Updated 09/07/24 @ 09:36 by Marysol Calhoun LPN) Smoking and tobacco/nicotine status: former use of tobacco/nicotine Quit status (tobacco/nicotine): has quit using Year quit tobacco: 1989 - PPD x 6 Years Alcohol intake: never Substance/Drug Use: never Lives independently: Yes Household members: none Marital status: / Current occupational status: retired Do you think of yourself as: Straight/Heterosexual Current gender identity: Female Physical Exam Narrative: EXAM NARRATIVE: Patient sitting up alert talkative was not in no acute distress. He was at risk of the reactive to light and full range ocular motion. Neck is supple. She has some erythematous dry rash on her forearms which she states is her poison lenny. Her neck is supple. Conjunctive is normal. Moist mucous membranes. No sinus tenderness. Heart is regular rhythm and lung sounds are clear. Abdomen soft nontender. Extremities warm well-perfused with no calf tenderness no pitting edema. She has clear speech and no facial droop. No evident visual field deficits on gross examination. She is alert and oriented x 4. She follows all commands appropriately. She has no drift in her arms or legs. She reports some mild numb feeling to testing of light touch sensation on the right cheek but has intact sensation on her arms and legs. She has intact [id number]-lenp and no truncal ataxia Course Vital Signs: Vital signs: Vital Signs Temperature 97.6 F 04/16/25 05:54 Pulse Rate 63 04/16/25 07:44 Respiratory Rate 16 04/16/25 07:09 Blood Pressure 163/68 04/16/25 07:44 Pulse Oximetry 92 04/16/25 07:44 Oxygen Delivery Me thod Room Air 04/16/25 07:44 MDM - Headache Medical Decision Making Patient presents complaining that she woke up with a headache in the right temporal region at 3:00 this morning with last known well 9 PM last night. Patient states her symptoms are much improved. She states initially she could not walk and she felt like she was having trouble with the right side of her body. She also noticed she had some sinus congestion and drainage and states that the only symptom she has right now is a slight headache and some sinus congestion and a puffy feeling on the right side of her face. Patient is NIH stroke scale here is 1 based on some decrease sensation on the right cheek to light touch. She has no sinus tenderness. She had no tenderness of significance over the temporal artery and soft and pliable on the right. Patient would not be TNK candidate with last known well 9 PM last night and not a thrombectomy candidate with NIH of 1. I discussed with Dr. Robbins who agrees. Patient sent for CT of the head. Not suggestive pattern for ruptured brain aneurysm. No known history of brain aneurysms for the patient or family per patient report. Patient states she has chronic shortness of breath from her COPD and feels that may be slightly worse this morning but otherwise has no other new complaints. Viral illness, temporal arteritis, stroke, broad differential. She states she has electric eat at home but does have a gas water heater but has a car monoxide detector. I advised her not to return to her house without having it tested and she expressed understanding. Will send patient for CT of the head and get CBC CMP sed rate CRP EKG chest x-ray urinalysis and other tests to assess for cause of generalized weakness in addition to evaluation for possible stroke. Patient has no meningeal signs. [place] leak or leaking brain aneurysm considered in the differential but less likely with waking headache and rapid improvement in with onset 3 hours ago will send for CT directly. CT of the head negative for acute process per radiology. Chest x-ray negative for acute process per radiology. Patient blood pressures improved. Patient EKG to my interpretation shows sinus bradycardia with a rate [address] segment changes. Creatinine is 1.2 which is not significant change from her baseline. White blood cell count is mildly elevated. Urinalysis is pending. Patient states she still felt weaker than normal when she tried to get up from transfer. I have discussed with the patient's 2 daughters who have arrived. I discussed with the patient treatment plan. With patient's continued symptoms I recommended admission to the hospital for further evaluation. I ordered aspirin 324 mg p.o. Will admit for further evaluation for possible stroke or other cause of weakness and I consulted with Dr. Miles who accepts in admission. Lab Data 04/16/25 06:06 04/16/25 06:06 Radiology Impressions Chest X-Ray 04/16/25 06:13 IMPRESSION: No acute cardiopulmonary findings. Head CT 04/16/25 06:13 IMPRESSION: No acute intracranial findings. ASSESSMENT: ASPECTS ([place] Stroke Program Early CT Score) is 10. Head/Neck CTA 04/16/25 07:03 IMPRESSION: No large vessel stenosis or occlusion. IMPRESSION: No hemodynamically significant arterial stenosis or occlusion in the arteries of the neck. REFERENCES: NASCET CRITERIA. The degree of stenosis in the cervical segment of the internal carotid artery is based on NASCET criteria. Normal is no stenosis. Mild is less than 50% stenosis. Moderate is 50-69% stenosis. Severe is 70% to 99% stenosis. Total occlusion is no detectable patent lumen. ADDENDUM: 04/16/25 0814 COMMENT: THIS REPORT CONTAINS FINDINGS THAT MAY BE CRITICAL TO PATIENT CARE. The exam findings were verbally communicated by me to BERNIE SUERO via telephone conference at 8:12 AM CDT on 04/16/2025. The findings were acknowledged and understood. Laboratory Results WBC 12.12 10^3/uL (3.29-11.43) H 04/16/25 06:06 RBC 4.31 10^6/uL (3.85-5.65) 04/16/25 06:06 Hgb 13.20 g/dL (11.27-16.99) 04/16/25 06:06 Hct 40.4 % (36-47) 04/16/25 06:06 MCV 93.7 fl (85-98) 04/16/25 06:06 MCH 30.6 pg (27-33) 04/16/25 06:06 MCHC 32.7 g/dL (30-55) 04/16/25 06:06 RDW 15.4 % (12.1-15.1) H 04/16/25 06:06 Plt Count 280 10^3/cmm (157-399) 04/16/25 06:06 MPV 10.1 fL (7.4-10.4) 04/16/25 06:06 Neut % (Auto) 60.8 % 04/16/25 06:06 Lymph % (Auto) 24.9 % 04/16/25 06:06 [place] % (Auto) 10.6 % 04/16/25 06:06 Eos % (Auto) 3.0 % 04/16/25 06:06 Baso % (Auto) 0.2 % 04/16/25 06:06 Neut # (Auto) 7.38 10^3/uL (1.8-7.7) 04/16/25 06:06 Lymph # (Auto) 3.0 10^3/uL (0.8-4.8) 04/16/25 06:06 [place] # (Auto) 1.3 10^3/uL (0.2-0.9) H 04/16/25 06:06 Eos # (Auto) 0.4 10^3/uL (0.0-0.8) 04/16/25 06:06 Baso # (Auto) 0.0 10^3/uL (0.0-0.1) 04/16/25 06:06 Nucleated RBC % (auto) 0 % 04/16/25 06:06 Nucleated RBCs # 0.0 /100WBC 04/16/25 06:06 ESR 7 mm/hr (0-15) 04/16/25 06:06 PT 13.00 SECONDS (12.1-14.9) 04/16/25 06:06 INR 0.92 (0.8-1.2) 04/16/25 06:06 APTT 25.2 SECONDS (23.9-36.7) 04/16/25 06:06 Sodium 138 mmol/L (136-145) 04/16/25 06:06 Potassium 4.3 mmol/L (3.5-5.1) 04/16/25 06:06 Chloride 99 mmol/L (98-107) 04/16/25 06:06 Carbon Dioxide 28 mmol/L (22-29) 04/16/25 06:06 Anion Gap 15.3 (5-19) 04/16/25 06:06 BUN 47 mg/dL (8-23) H 04/16/25 06:06 Creatinine 1.2 mg/dL (0.5-0.9) H 04/16/25 06:06 GFR Calculation Not Reportable 04/16/25 06:06 Glucose 92 mg/dL (65-115) 04/16/25 06:06 POC Glucose 92 mg/dL (70-110) 04/16/25 07:03 Calculated Osmolality 298 mOsm/kg (285-295) H 04/16/25 06:06 Calcium 9.6 mg/dL (8.5-10.5) 04/16/25 06:06 Total Bilirubin 0.4 mg/dL (0.15-1.2) 04/16/25 06:06 AST 17 U/L (0-32) 04/16/25 06:06 ALT 18 U/L (0-33) 04/16/25 06:06 Alkaline Phosphatase 71 U/L (35-105) 04/16/25 06:06 C-Reactive Protein 3.0 mg/L (0.0-4.9) 04/16/25 06:06 Total Protein 7.4 g/dL (6.6-8.7) 04/16/25 06:06 Albumin 4.5 g/dL (3.5-5.2) 04/16/25 06:06 Globulin 2.9 g/dL (1.3-4.6) 04/16/25 06:06 Urine Color Yellow (Yellow) 04/16/25 07:42 Urine Appearance Clear (CLEAR) 04/16/25 07:42 Urine pH 6.0 (5-7) 04/16/25 07:42 Ur Specific [place] 1.012 (1.005-1.030) 04/16/25 07:42 Urine Protein 2+ (Negative) A 04/16/25 07:42 Urine Glucose (UA) Negative (Normal) 04/16/25 07:42 Urine Ketones Negative (Negative) 04/16/25 07:42 Urine Blood Trace (Negative) A 04/16/25 07:42 Urine Nitrate Negative (Negative) 04/16/25 07:42 Urine Bilirubin Negative (Negative) 04/16/25 07:42 Urine Urobilinogen 0.2 mg/dL (Negative) 04/16/25 07:42 Ur Leukocyte Esterase Negative (Negative) 04/16/25 07:42 Urine RBC 0-2 /hpf (0-2) 04/16/25 07:42 Urine WBC 0-5 /hpf (0-5) 04/16/25 07:42 Ur Squamous Epith Cells 0-5 /hpf (0-5) 04/16/25 07:42 Amorphous Sediment Not Reportable 04/16/25 07:42 Urine Bacteria None seen /hpf (NONE) 04/16/25 07:42 Hyaline Casts 0-4 /lpf H 04/16/25 07:42 Influenza A (PCR) Negative (Negative) 04/16/25 07:05 Influenza Type B (PCR) Negative (Negative) 04/16/25 07:05 RSV (PCR) Negative (Negative) 04/16/25 07:05 SARS-CoV-2 (PCR) Negative (Negative) 04/16/25 07:05 All radiology interpretation(s) finalized by discharge Discharge Plan Discharge Patient Disposition: Placed in Observation Clinical Impression: Acute focal neurological deficit Coding Level of Care Code ED [employer] Control Room Operator for Bhanu Lennon
[2025-04-16 06:22] LABS: Basophils % 0.2 %; Eosinophils # 0.4 10^3/uL (0.0-0.8); Hematocrit 40.4 % (36-47); Lymphocytes % 24.9 %; Mean Corpuscular HGB Conc 32.7 g/dL (30-55); Mean Corpuscular Hemoglobin 30.6 pg (27-33); Mean Corpuscular Volume 93.7 fl (85-98); Mean Platelet Volume 10.1 fL (7.4-10.4); Monocytes # 1.3 10^3/uL (0.2-0.9); Monocytes % 10.6 %; Neutrophils # 7.38 10^3/uL (1.8-7.7); Neutrophils % 60.8 %; Nucleated Red Blood Cells % 0 %; Platelet Count 280 10^3/cmm (157-399); Red Blood Count 4.31 10^6/uL (3.85-5.65); Red Cell Distribution Width 15.4 % (12.1-15.1); White Blood Count 12.12 10^3/uL (3.29-11.43)
--- NOTE | 2025-04-16 06:26 | ECG_ITS ---
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 Measurements Intervals [place] Rate: 55 P: -11 MI: 130 QRS: -20 QRSD: 89 T: 77 QT: 410 QTc: 394 Interpretive Statements SINUS BRADYCARDIA NONSPECIFIC T-WAVE ABNORMALITY Compared to ECG 03/21/2024 17:44:25 T-wave abnormality now present Sinus rhythm no longer present Electronically Signed On 04-19-2025 11:44:00 CDT by Jake Obando M.D. [id number]
[2025-04-16 06:42] LABS: Erythrocyte Sedimentation Rate 7 mm/hr (0-15)
[2025-04-16 06:46] LABS: INR 0.92 (0.8-1.2)
[2025-04-16 06:47] LABS: Partial Thromboplastin Time 25.2 SECONDS (23.9-36.7)
[2025-04-16] MEDS: acetaminophen 325 mg Tablet 650 MG PO ×2 (06:50→21:04)
[2025-04-16 06:51] LABS: Alanine Aminotransferase 18 U/L (0-33); Albumin Level 4.5 g/dL (3.5-5.2); Alkaline Phosphatase 71 U/L (35-105); Anion Gap 15.3 (5-19); Aspartate Amino Transferase 17 U/L (0-32); Blood Urea Nitrogen 47 mg/dL (8-23); Calcium 9.6 mg/dL (8.5-10.5); Carbon Dioxide 28 mmol/L (22-29); Chloride 99 mmol/L (98-107); Globulin 2.9 g/dL (1.3-4.6); Glucose 92 mg/dL (65-115); Osmolality Calculated 298 mOsm/kg (285-295); Potassium 4.3 mmol/L (3.5-5.1); Sodium 138 mmol/L (136-145); Total Bilirubin 0.4 mg/dL (0.15-1.2); Total Protein 7.4 g/dL (6.6-8.7)
[2025-04-16 06:52] LABS: Creatinine Clr Calc Pharmacy 35.1947
[2025-04-16] MEDS: aspirin 81 mg Chew Tablet 324 MG PO (06:53)
--- NOTE | 2025-04-16 07:03 | CTR_ITS ---
PROCEDURE INFORMATION: Exam: CTA Head With Contrast, Arteriography Exam date and time: 04/16/2025 7:47 AM Age: 84 years old Clinical indication: Stroke-like symptoms; Headache; RT upper extremity weakness; Additional info: Right sided weakness TECHNIQUE: Imaging protocol: Computed tomographic angiography of the head with contrast. Exam focused on the arteries. 3D rendering (Not supervised by radiologist): MIP and/or 3D reconstructed images were created by the technologist. Radiation optimization: All CT scans at this facility use at least one of these dose optimization techniques: automated exposure control; mA and/or kV adjustment per patient size (includes targeted exams where dose is matched to clinical indication); or iterative reconstruction. Contrast material: OMNIPAQUE 350; Contrast volume: 100 ml; Contrast route: INTRAVENOUS (IV); COMPARISON: CT head thrombolytic [id number] 04/16/2025 6:16 AM RADIATION DOSE METRICS: Total DLP (mGy-cm): 423.05 FINDINGS: ANTERIOR CIRCULATION: Right internal carotid artery: Intracranial segment is patent with no significant stenosis. No aneurysm. Right middle cerebral artery: No occlusion or significant stenosis. No aneurysm. Right anterior cerebral artery: No occlusion or significant stenosis. No aneurysm. Left internal carotid artery: Intracranial segment is patent with no significant stenosis. No aneurysm. Left middle cerebral artery: No occlusion or significant stenosis. No aneurysm. Left anterior cerebral artery: No occlusion or significant stenosis. No aneurysm. POSTERIOR CIRCULATION: Right vertebral artery: No occlusion or significant stenosis. No aneurysm. Left vertebral artery: No occlusion or significant stenosis. No aneurysm. Basilar artery: No occlusion or significant stenosis. No aneurysm. Right posterior cerebral artery: Normal variant persistent origin of the right posterior cerebral artery. Left posterior cerebral artery: No occlusion or significant stenosis. No aneurysm. Brain: No definite mass, mass effect, or midline shift. Cerebral ventricles: No ventriculomegaly. Bones/joints: Unremarkable. No acute fracture. Soft tissues: Unremarkable. PROCEDURE INFORMATION: Exam: CTA Neck With Contrast Exam date and time: 04/16/2025 7:47 AM Age: 84 years old Clinical indication: Stroke-like symptoms; Headache; RT upper extremity weakness; Additional info: Right sided weakness TECHNIQUE: Imaging protocol: Computed tomographic angiography of the neck with contrast. Exam focused on the cervical segments of the vasculature. 3D rendering (Not supervised by radiologist): MIP and/or 3D reconstructed images were created by the technologist. Radiation optimization: All CT scans at this facility use at least one of these dose optimization techniques: automated exposure control; mA and/or kV adjustment per patient size (includes targeted exams where dose is matched to clinical indication); or iterative reconstruction. Contrast material: OMNIPAQUE 350; Contrast volume: 100 ml; Contrast route: INTRAVENOUS (IV); COMPARISON: CT angio chest PE protcl [id number] 07/08/2023 4:58 PM RADIATION DOSE METRICS: Total DLP (mGy-cm): 423.05 FINDINGS: Right common carotid artery: No stenosis. No dissection or occlusion. Right internal carotid artery: No stenosis of the extracranial segment. No dissection or occlusion. Right external carotid artery: No occlusion or stenosis of the origin. Left common carotid artery: Mild stenosis at the left carotid bulb secondary to calcified atherosclerotic plaque. Left internal carotid artery: No stenosis of the extracranial segment. No dissection or occlusion. Left external carotid artery: No occlusion or stenosis of the origin. Right vertebral artery: No stenosis. No dissection or occlusion. Left vertebral artery: No stenosis. No dissection or occlusion. Soft tissues: Normal. No significant soft tissue swelling. Bones/joints: Multilevel chronic degenerative changes throughout the cervical spine. Lungs: Chronic appearing biapical pulmonary scar. CT/CT angio headneck* [id number] IMPRESSION: No large vessel stenosis or occlusion. IMPRESSION: No hemodynamically significant arterial stenosis or occlusion in the arteries of the neck. REFERENCES: NASCET CRITERIA. The degree of stenosis in the cervical segment of the internal carotid artery is based on NASCET criteria. Normal is no stenosis. Mild is less than 50% stenosis. Moderate is 50-69% stenosis. Severe is 70% to 99% stenosis. Total occlusion is no detectable patent lumen.
[2025-04-16 07:06] LABS: Glucose Point of Care 92 mg/dL (70-110)
[2025-04-16] MEDS: iohexol 350 mg/mL 500 mL Btl (per mL) IV (07:52)
[2025-04-16 08:13] LABS: Influenza A NEGATIVE (Negative); Influenza B NEGATIVE (Negative); Respiratory Syncytial Virus Ce NEGATIVE (Negative); SARS-CoV-2 PCR NEGATIVE (Negative)
[2025-04-16 08:37] LABS: Bilirubin Urine Negative (Negative); Blood Urine Trace (Negative); Glucose Urine UA Negative (Normal); Ketones Urine Negative (Negative); Leukocyte Esterase Urine Negative (Negative); Nitrate Urine Negative (Negative); Protein Urine 2+ (Negative); Specific Gravity, Urine 1.012 (1.005-1.030); Urine Appearance Clear (CLEAR); Urine Color Yellow (Yellow); Urobilinogen Urine 0.2 mg/dL (Negative)
[2025-04-16 08:40] LABS: Add Urine Microscopic? YES; Bacteria Urine None Seen /hpf; Hyaline Casts Urine 0-4 /lpf; RBC Urine 0-2 /hpf (0-2); Squamous Epithelial Cell Urine 0-5 /hpf (0-5); WBC Urine 0-5 /hpf (0-5)
--- NOTE | 2025-04-16 09:45 | ECG_ITS ---
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 Measurements Intervals [place] Rate: 57 P: 39 MA: 155 QRS: -15 QRSD: 86 T: 48 QT: 413 QTc: 405 Interpretive Statements SINUS BRADYCARDIA Compared to ECG 04/16/2025 06:26:14 T-wave abnormality no longer present Electronically Signed On 04-19-2025 11:43:35 CDT by Jake Obando M.D. [id number] [id number]
--- NOTE | 2025-04-16 09:49 | PM.HP ---
Providers/Chief Complaint Admitting Physician: Mandie Mlies MD Primary Care Provider: Reggie Reeves MD Chief Complaint: headache History of Present Illness Latosha Lozano is a 84 year old female with a past medical history of coronary artery disease, hypertension, gout, who presented to the hospital today with chief complaints of waking up with a headache at 3 AM and thereafter experiencing numbness over the right side of her arm and face. She felt overall weak and states it was very difficult to get out of bed at this time. She was reportedly in her usual state of health when she went to bed at 9 PM. Initially a stroke code was called however ultimately patient was not deemed to be a tPA candidate given an NIH score of 1, and improving symptoms by the time of ER arrival. Case was discussed with neurology by the ER physician. CT of the head and CTA of the head and neck was negative for any acute stroke. Her headache is improving at the time of my assessment. Her EKG was reviewed and did show some peaked T waves, however electrolytes are within normal range today. She was noted to have mild bradycardia with heart rate of 57/min. She is asymptomatic in this regard. Recent history is notable for having had a rash from poison lenny contact for which she is on a tapering dose of prednisone over the past few days. She was noted to be hypertensive with blood pressure up to 170-180 systolic upon initial ER arrival. Yesterday she was working in her yard and sprayed SEVIN 5% dust on some of her plants trying to get rid of poison lenny. Currently does not have any muscarinic symptoms. Review of system was positive for chest pressure located in the middle of the chest and radiating into the right arm. She denied any dyspnea palpitations or syncope. Review of Systems General: Reports: 10 or more systems reviewed and unremarkable except in HPI and below Const: Denies: fever(s), chills or body aches Eyes: Denies: change in vision, blurry vision or photophobia ENMT: Reports: hoarseness; Denies: throat pain, enlarged tonsils, odynophagia or nasal congestion Card: Denies: chest pain, palpitations, irregular heart rhythm, edema, swelling of feet/ankles, lightheadedness, pre-syncope, dyspnea on exertion or orthopnea Resp: Denies: dyspnea, productive cough, non-productive cough, wheezing, stridor, pain on inspiration, change in phlegm color, hemoptysis or chest congestion GI: Denies: abdominal pain, nausea, vomiting, hematemesis, coffee ground emesis, dysphagia, heartburn, diarrhea, constipation, GI cramping, change in stool character, hematochezia or melena : Denies: flank pain, difficulty voiding, dysuria, urinary frequency, urinary urgency, urinary hesitancy or hematuria Musc: Denies: neck pain, back pain, extremity pain, joint swelling, joint warmth or deformity Neuro: Denies: headache(s), numbness in extremities, weakness in extremities, sensory changes, difficulty walking, frequent falls, dizziness, vertigo, behavioral changes, Slurred speech present or seizure-like activity Psych: Denies: anxiety, depression, suicidal ideation or homicidal ideation Endo: Denies: polyuria, polydipsia, tired all the time, cold intolerance or hot flashes Cheikh/Lymph: Denies: easy bruising or easy bleeding Medications/Allergies Home Medications ?Medication ?Instructions ?Recorded ?Confirmed ?Last Taken ?Type acetaminophen 300 mg-codeine 15 mg 1 tab PO Q8H PRN Pain 04/11/20 04/16/25 Unknown History tablet albuterol sulfate 90 mcg/actuation 2 puff inhalation Q6H PRN 04/11/20 04/16/25 Unknown History aerosol inhaler (Ventolin HFA) Shortness Of Breath Or Wheezing allopurinol 100 mg tablet 100 mg PO DAILY 04/11/20 04/16/25 04/15/25 History omeprazole 40 mg capsule,delayed 40 mg PO DAILY 04/11/20 04/16/25 04/15/25 History release simvastatin 20 mg tablet 20 mg PO DAILY 04/11/20 04/16/25 04/15/25 History metoprolol tartrate 25 mg tablet 50 mg PO BID 01/24/22 04/16/25 04/15/25 History amlodipine 5 mg tablet 5 mg PO DAILY #180 tabs 06/03/22 04/16/25 04/15/25 Rx latanoprost 0.005 % eye drops 1 drp ophthalmic (eye) DAILY 02/06/23 04/16/25 04/15/25 History gabapentin 300 mg capsule 600 mg PO QID 07/08/23 04/16/25 04/15/25 History multivitamin 1 tab PO DAILY 10/15/24 05/31/25 05/30/25 History furosemide 20 mg tablet 20 mg PO DAILY #45 tabs 11/01/24 04/16/25 04/15/25 Rx glucosamine sulfate 1,000 mg 1,000 mg PO DAILY 12/08/24 04/16/25 04/15/25 History capsule acetaminophen 500 mg tablet 1,000 mg PO Q6H PRN Fever Or Pain 04/16/25 04/16/25 Unknown History (Tylenol Extra Strength) aspirin 81 mg tablet,delayed 81 mg PO DAILY 04/16/25 04/16/25 04/15/25 History release ([place]den Low Dose Aspirin) potassium chloride 8 mEq 8 meq PO DAILY 04/16/25 04/16/25 04/15/25 History tablet,extended release prednisone 5 mg tablet See Rx Instructions .Route .COMPLEX 04/16/25 04/16/25 04/15/25 History Allergies Allergy/AdvReac Type Severity Reaction Status Date / Time No Known Allergies Allergy Verified 12/08/24 11:31 PFSH Acute PFSH: Medical History High risk medication use Erosive osteoarthritis of both hands DJD (degenerative joint disease), lumbar Peripheral neuropathy GERD (gastroesophageal reflux disease) Gout Primary osteoarthritis of left knee Essential hypertension CAD (coronary artery disease) Hyperlipidemia CKD (chronic kidney disease) COPD (chronic obstructive pulmonary disease) Myocardial infarction Surgical History S/P carpal tunnel release S/P hysterectomy H/O neck surgery S/P knee replacement Family History Mother CAD (coronary artery disease) Father COPD (chronic obstructive pulmonary disease) Social History (Updated 09/07/24 @ 09:36 by Marysol Calhoun LPN) Smoking and tobacco/nicotine status: former use of tobacco/nicotine Quit status (tobacco/nicotine): has quit using Year quit tobacco: 1989 PPD x 6 Years Alcohol intake: never Substance/Drug Use: never Lives independently: Yes Household members: none Marital status: / Current occupational status: retired Do you think of yourself as: Straight/Heterosexual Current gender identity: Female Vitals/I&O/Wt Last Vital Signs Temp 97.6 F 04/16/25 05:54 Pulse 70 04/16/25 09:41 Resp 16 04/16/25 07:09 BP 148/86 04/16/25 09:41 Pulse Ox 93 04/16/25 09:41 O2 Del Method Room Air 04/16/25 09:41 Weight last 48 hrs Weight 77.111 kg Physical Exam Narrative: General: No acute distress, AO x3 HEENT: PERRLA, pupils bilaterally equal and reactive, pallors not present Chest: Normal vesicular breath sounds, no added sounds, equal good air entry bilaterally CVS: S1-S2 regular, no murmurs, no tachycardia, no gallops, no rubs Abdomen: Soft, nontender, no organomegaly, bowel sounds present Neuro: No focal deficits, no facial deformity, AO x3, power 5/5 in all limbs Data 04/17/25 02:43 04/17/25 02:43 Other data: [place] [address] CT Scan Report Signed with Addenda Patient: Latosha Lozano Unit #: [id number] : 1940 Age/Sex: 84 / F ADM Date: 04/16/25 Loc: ER Room/Bed: Attending Dr: Ordering Provider/Ordering MD: Bernie Suero MD Date of Service: 04/16/25 Procedure(s): CT angio headneck* [id number] Accession Number(s): [id number] Report Number: [id number]/CT angio headneck* [id number] COMMENT: THIS REPORT CONTAINS FINDINGS THAT MAY BE CRITICAL TO PATIENT CARE. The exam findings were verbally communicated by me to BERNIE SUERO via telephone conference at 8:12 AM CDT on 04/16/2025. The findings were acknowledged and understood. Addendum Dictated By: Jermain Frazier MD Addendum Signed By: Jermain Frazier MD Signed Date/Time: 04/16/25813 Addendum Cosigned By: PROCEDURE INFORMATION: Exam: CTA Head With Contrast, Arteriography Exam date and time: 04/16/2025 7:47 AM Age: 84 years old Clinical indication: Stroke-like symptoms; Headache; RT upper extremity weakness; Additional info: Right sided weakness TECHNIQUE: Imaging protocol: Computed tomographic angiography of the head with contrast. Exam focused on the arteries. 3D rendering (Not supervised by radiologist): MIP and/or 3D reconstructed images were created by the technologist. Radiation optimization: All CT scans at this facility use at least one of these dose optimization techniques: automated exposure control; mA and/or kV adjustment per patient size (includes targeted exams where dose is matched to clinical indication); or iterative reconstruction. Contrast material: OMNIPAQUE 350; Contrast volume: 100 ml; Contrast route: INTRAVENOUS (IV); COMPARISON: CT head thrombolytic [id number] 04/16/2025 6:16 AM RADIATION DOSE METRICS: Total DLP (mGy-cm): 423.05 FINDINGS: ANTERIOR CIRCULATION: Right internal carotid artery: Intracranial segment is patent with no significant stenosis. No aneurysm. Right middle cerebral artery: No occlusion or significant stenosis. No aneurysm. Right anterior cerebral artery: No occlusion or significant stenosis. No aneurysm. Left internal carotid artery: Intracranial segment is patent with no significant stenosis. No aneurysm. Left middle cerebral artery: No occlusion or significant stenosis. No aneurysm. Left anterior cerebral artery: No occlusion or significant stenosis. No aneurysm. POSTERIOR CIRCULATION: Right vertebral artery: No occlusion or significant stenosis. No aneurysm. Left vertebral artery: No occlusion or significant stenosis. No aneurysm. Basilar artery: No occlusion or significant stenosis. No aneurysm. Right posterior cerebral artery: Normal variant persistent origin of the right posterior cerebral artery. Left posterior cerebral artery: No occlusion or significant stenosis. No aneurysm. Brain: No definite mass, mass effect, or midline shift. Cerebral ventricles: No ventriculomegaly. Bones/joints: Unremarkable. No acute fracture. Soft tissues: Unremarkable. PROCEDURE INFORMATION: Exam: CTA Neck With Contrast Exam date and time: 04/16/2025 7:47 AM Age: 84 years old Clinical indication: Stroke-like symptoms; Headache; RT upper extremity weakness; Additional info: Right sided weakness TECHNIQUE: Imaging protocol: Computed tomographic angiography of the neck with contrast. Exam focused on the cervical segments of the vasculature. 3D rendering (Not supervised by radiologist): MIP and/or 3D reconstructed images were created by the technologist. Radiation optimization: All CT scans at this facility use at least one of these dose optimization techniques: automated exposure control; mA and/or kV adjustment per patient size (includes targeted exams where dose is matched to clinical indication); or iterative reconstruction. Contrast material: OMNIPAQUE 350; Contrast volume: 100 ml; Contrast route: INTRAVENOUS (IV); COMPARISON: CT angio chest PE protcl [id number] 07/08/2023 4:58 PM RADIATION DOSE METRICS: Total DLP (mGy-cm): 423.05 FINDINGS: Right common carotid artery: No stenosis. No dissection or occlusion. Right internal carotid artery: No stenosis of the extracranial segment. No dissection or occlusion. Right external carotid artery: No occlusion or stenosis of the origin. Left common carotid artery: Mild stenosis at the left carotid bulb secondary to calcified atherosclerotic plaque. Left internal carotid artery: No stenosis of the extracranial segment. No dissection or occlusion. Left external carotid artery: No occlusion or stenosis of the origin. Right vertebral artery: No stenosis. No dissection or occlusion. Left vertebral artery: No stenosis. No dissection or occlusion. Soft tissues: Normal. No significant soft tissue swelling. Bones/joints: Multilevel chronic degenerative changes throughout the cervical spine. Lungs: Chronic appearing biapical pulmonary scar. CT/CT angio headneck* [id number] IMPRESSION: No large vessel stenosis or occlusion. IMPRESSION: No hemodynamically significant arterial stenosis or occlusion in the arteries of the neck. CT/CT head thrombolytic [id number] IMPRESSION: No acute intracranial findings. XR/XR chest 1V portable [id number] IMPRESSION: No acute cardiopulmonary findings. A&P Assessment and plan (1) TIA (transient ischemic attack): Patient presented to the hospital today with neurological symptoms including waking up with a sudden headache, and developing generalized weakness followed by residual numbness involving the right arm and right side of the face. Currently at the time of this assessment she does not have any focal neurological deficits, no facial asymmetry. 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 Possibly symptoms may have been related to elevated blood pressure as caused by recent high-dose steroid intake for poison lenny dermatitis. Patient was using Carbaryl based insecticide/weedicide last afternoon. Poison control contacted to assess if symptoms may be related to carbamate poisoning. Per discussion, current symptoms are not consistent with carbonate poisoning given lack of any muscarinic features. She is noted to be mildly bradycardic, however this is most likely related to being on metoprolol at home. It has been over 12 hours since exposure and symptoms do not appear characteristic. Check CK to evaluate for any underlying steroid-induced myopathy as potentially contributing PT OT speech therapy evaluation. (2) Uncontrolled hypertension: Ordered for home dose of amlodipine and metoprolol at this time. As needed IV hydralazine if symptoms do not improve. (3) Atypical chest pain: Atypical chest pain located in the middle of the chest radiating to the right side felt as numbness. Screening D-dimer. Less likely PE given lack of any respiratory symptoms Check EKG and troponin series. (4) COPD (chronic obstructive pulmonary disease): History of COPD. Continue albuterol as needed as she takes at home. (5) Acute dermatitis: Related to poison lenny Continue prednisone 20 mg p.o. daily. Her rash is currently improving at this point. Plan DVT prophylaxis: Lovenox 40 Full code PDMP PDMP Reviewed: Not Reviewed Attestations Medical Necessity Statement*: Greater than 2 midnight stay is currently anticipated Coding Level of Care Code Acute Code for [facility] Fwd Diagnoses TIA (transient ischemic attack) G45.9 Uncontrolled hypertension I10 Atypical chest pain R07.89 COPD (chronic obstructive pulmonary disease) J44.9 Acute dermatitis L30.9
[2025-04-16] MEDS: enoxaparin 40 mg/0.4 mL Syringe SUBCUT ×2 (10:01→20:03)
[2025-04-16 10:23] LABS: D Dimer 1.05 ug/mLFEU (0-0.59)
[2025-04-16 10:32] LABS: Troponin(5th) Baseline 72 ng/L (0-10)
[2025-04-16 10:40] LABS: Magnesium 2.2 mg/dL (1.7-2.3); Thyroid Stimulating Hormone 0.98 uIU/mL (0.27-4.20)
--- NOTE | 2025-04-16 11:45 | ECG_ITS ---
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
[2025-04-16 11:58] LABS: Troponin 5 2HR 81.61 ng/L (0-10); Troponin 5 2HR Delta 9.61 ABS# (0-10)
[2025-04-16 13:46] LABS: Creatine Phosphokinase 56 U/L (26-192)
[2025-04-16] MEDS: amlodipine 5 mg Tablet PO (14:23)
[2025-04-16] MEDS: gabapentin 300 mg Capsule 600 MG PO ×2 (14:23→20:03)
--- NOTE | 2025-04-16 15:38 | ECG_ITS ---
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
[2025-04-16 16:37] LABS: Troponin 5 6HR 109.8 ng/L (0-10); Troponin 5 6HR Delta 37.8 ng/L (0-12)
[2025-04-16] MEDS: metoprolol tartrate 25 mg Tablet PO (17:15)
[2025-04-16] MEDS: calcium carbonate 500 mg Chew Tablet PO (18:19)
[2025-04-16] MEDS: atorvastatin 40 mg Tablet PO (20:03)
[2025-04-17] VITALS (16 sets, daily range): BP systolic 90–120; BP diastolic 57–71; PULSE 58–99; RESP 16–19; TEMP 36.4–36.9; O2SAT 90–95
[2025-04-17 03:13] LABS: Basophils % 0.2 %; Eosinophils # 0.5 10^3/uL (0.0-0.8); Eosinophils % 5.4 %; Hematocrit 37.3 % (36-47); Lymphocytes # 1.8 10^3/uL (0.8-4.8); Lymphocytes % 20.8 %; Mean Corpuscular HGB Conc 32.7 g/dL (30-55); Mean Corpuscular Hemoglobin 30.8 pg (27-33); Mean Corpuscular Volume 94.2 fl (85-98); Mean Platelet Volume 10.1 fL (7.4-10.4); Neutrophils # 5.27 10^3/uL (1.8-7.7); Neutrophils % 61.1 %; Nucleated Red Blood Cells % 0 %; Platelet Count 237 10^3/cmm (157-399); Red Blood Count 3.96 10^6/uL (3.85-5.65); Red Cell Distribution Width 15.4 % (12.1-15.1); White Blood Count 8.64 10^3/uL (3.29-11.43)
[2025-04-17 04:20] LABS: Estmated Average Glucose 111; Hemoglobin A1C 5.5 % (4.0-6.0)
[2025-04-17 04:35] LABS: Alanine Aminotransferase 189 U/L (0-33); Albumin Level 3.6 g/dL (3.5-5.2); Alkaline Phosphatase 85 U/L (35-105); Aspartate Amino Transferase 246 U/L (0-32); Blood Urea Nitrogen 33 mg/dL (8-23); Calcium 8.8 mg/dL (8.5-10.5); Carbon Dioxide 26 mmol/L (22-29); Creatinine Clr Calc Pharmacy 38.1801; Globulin 2.4 g/dL (1.3-4.6); Glucose 77 mg/dL (65-115); Total Bilirubin 0.4 mg/dL (0.15-1.2)
[2025-04-17 04:36] LABS: Chol HDL Ratio 2.67 mg/dL (0.0-4.40); Cholesterol 144 mg/dL (0-200); HDL Cholesterol 54 mg/dL (60-100); LDL Cholesterol Calculated 57 mg/dL (50-129); LDL HDL Ratio 1.06 RATIO (0.00-3.22); Triglycerides 167 mg/dL (0-150)
[2025-04-17 05:52] LABS: Anion Gap 15.7 (5-19); Chloride 98 mmol/L (98-107); Osmolality Calculated 286 mOsm/kg (285-295); Potassium 4.7 mmol/L (3.5-5.1); Sodium 135 mmol/L (136-145)
[2025-04-17] MEDS: amlodipine 5 mg Tablet PO (08:37)
[2025-04-17] MEDS: allopurinol 100 mg Tablet PO (08:37)
[2025-04-17] MEDS: pantoprazole DR 40 mg Tablet PO (08:37)
[2025-04-17] MEDS: gabapentin 300 mg Capsule 600 MG PO ×3 (08:37→19:44)
[2025-04-17] MEDS: latanoprost 0.005% Op Soln 2.5 mL Btl 1 DROP EYE-BOTH (08:37)
[2025-04-17] MEDS: predniSONE 5 mg Tablet 20 MG PO (08:38)
[2025-04-17] MEDS: aspirin 81 mg EC Tablet PO (08:38)
[2025-04-17] MEDS: FUROsemide 20 mg Tablet PO (08:38)
[2025-04-17] MEDS: metoprolol tartrate 25 mg Tablet PO ×2 (08:38→17:55)
[2025-04-17] MEDS: enoxaparin 40 mg/0.4 mL Syringe SUBCUT (10:16)
--- NOTE | 2025-04-17 11:00 | PM.PN ---
Subjective Subjective: No new complaints today. Patient states she has not had any recurrence of her chest pain today. Medications: Reviewed: Yes Vitals/I&O/Wt Last Vital Signs Temp 98.1 F 04/17/25 12:00 Pulse 78 04/17/25 12:00 Resp 18 04/17/25 12:00 BP 118/70 04/17/25 12:00 Pulse Ox 91 04/17/25 11:15 O2 Del Method Room Air 04/17/25 11:15 04/17/25 04/17/25 04/17/25 06:59 14:59 22:59 Intake Total 1200 / 1200 Balance 1200 / 1200 Weight last 48 hrs Weight 79.56 kg Weight 76.204 kg Weight 77.111 kg Physical Exam Narrative: General: No acute distress, AO x3 HEENT: PERRLA, pupils bilaterally equal and reactive, pallors not present Chest: Normal vesicular breath sounds, no added sounds, equal good air entry bilaterally CVS: S1-S2 regular, no murmurs, no tachycardia, no gallops, no rubs Abdomen: Soft, nontender, no organomegaly, bowel sounds present Neuro: No focal deficits, no facial deformity, AO x3, power 5/5 in all limbs Data 04/17/25 02:43 04/17/25 02:43 A&P Assessment and plan (1) TIA (transient ischemic attack): Patient presented to the hospital today with neurological symptoms including waking up with a sudden headache, and developing generalized weakness followed by residual numbness involving the right arm and right side of the face. Currently at the time of this assessment she does not have any focal neurological deficits, no facial asymmetry. 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 Possibly symptoms may have been related to elevated blood pressure as caused by recent high-dose steroid intake for poison lenny dermatitis. Patient was using Carbaryl based insecticide/weedicide last afternoon. Poison control contacted to assess if symptoms may be related to carbamate poisoning. Per discussion, current symptoms are not consistent with carbonate poisoning given lack of any muscarinic features. She is noted to be mildly bradycardic, however this is most likely related to being on metoprolol at home. It has been over 12 hours since exposure and symptoms do not appear characteristic. Check CK to evaluate for any underlying steroid-induced myopathy as potentially contributing PT OT speech therapy evaluation. (2) Uncontrolled hypertension: Ordered for home dose of amlodipine and metoprolol at this time. As needed IV hydralazine if symptoms do not improve. (3) Atypical chest pain: Atypical chest pain located in the middle of the chest radiating to the right side felt as numbness. Screening D-dimer. Less likely PE given lack of any respiratory symptoms Check EKG and troponin series. (4) COPD (chronic obstructive pulmonary disease): History of COPD. Continue albuterol as needed as she takes at home. (5) Acute dermatitis: Related to poison lenny Continue prednisone 20 mg p.o. daily. Her rash is currently improving at this point. Plan DVT prophylaxis: Lovenox 40 Full code April 17, 2025 Troponin series from yesterday had revealed an uptrend with a delta of 37 at 6 hours. Given that she had earlier complained of chest pain, with a history of coronary artery disease, will evaluate further with a cardiac stress test. She is chest pain-free today. Cardiology service has been consulted. Echocardiogram was ordered which is currently pending at this time. She received a dose of Lovenox 1 mg/kg last evening, will continue again pending cardiology assessment. Continue home doses of aspirin 81 mg p.o. daily. Continue atorvastatin. Blood pressure is better controlled today with initiation of metoprolol and amlodipine. Metoprolol dose was reduced to 25 mg p.o. twice daily from home dosing of 50 mg p.o. twice daily due to bradycardia with heart rate in the 50s. PDMP PDMP Reviewed: Not Reviewed Attestations Medical Necessity Statement*: Elevated troponins with positive delta. Cardiology assessment. Pending echocardiogram Coding Level of Care Code Acute Code for Chg Fwd Diagnoses TIA (transient ischemic attack) G45.9 Uncontrolled hypertension I10 Atypical chest pain R07.89 COPD (chronic obstructive pulmonary disease) J44.9 Acute dermatitis L30.9
--- NOTE | 2025-04-17 15:17 | ECG_ITS ---
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
--- NOTE | 2025-04-17 17:20 | PM.CONSULT ---
Providers/Reason For Consult Attending Physician: Mandie Miles MD Primary Care Provider: Reggie Reeves MD History of Present Illness History of Present Illness Latosha Lozano is a 84 year old female Medications/Allergies Home Medications ?Medication ?Instructions ?Recorded ?Confirmed ?Last Taken ?Type acetaminophen 300 mg-codeine 15 mg 1 tab PO Q8H PRN Pain 04/11/20 04/16/25 Unknown History tablet albuterol sulfate 90 mcg/actuation 2 puff inhalation Q6H PRN 04/11/20 04/16/25 Unknown History aerosol inhaler (Ventolin HFA) Shortness Of Breath Or Wheezing allopurinol 100 mg tablet 100 mg PO DAILY 04/11/20 04/16/25 04/15/25 History omeprazole 40 mg capsule,delayed 40 mg PO DAILY 04/11/20 04/16/25 04/15/25 History release simvastatin 20 mg tablet 20 mg PO DAILY 04/11/20 04/16/25 04/15/25 History metoprolol tartrate 25 mg tablet 50 mg PO BID 01/24/22 04/16/25 04/15/25 History amlodipine 5 mg tablet 5 mg PO DAILY #180 tabs 06/03/22 04/16/25 04/15/25 Rx latanoprost 0.005 % eye drops 1 drp ophthalmic (eye) DAILY 02/06/23 04/16/25 04/15/25 History gabapentin 300 mg capsule 600 mg PO QID 07/08/23 04/16/25 04/15/25 History multivitamin 1 tab PO DAILY 08/31/24 04/16/25 04/15/25 History furosemide 20 mg tablet 20 mg PO DAILY #45 tabs 11/01/24 04/16/25 04/15/25 Rx glucosamine sulfate 1,000 mg 1,000 mg PO DAILY 12/08/24 04/16/25 04/15/25 History capsule acetaminophen 500 mg tablet 1,000 mg PO Q6H PRN Fever Or Pain 04/16/25 04/16/25 Unknown History (Tylenol Extra Strength) aspirin 81 mg tablet,delayed 81 mg PO DAILY 04/16/25 04/16/25 04/15/25 History release (Hayden Low Dose Aspirin) potassium chloride 8 mEq 8 meq PO DAILY 04/16/25 04/16/25 04/15/25 History tablet,extended release prednisone 5 mg tablet See Rx Instructions .Route .COMPLEX 04/16/25 04/16/25 04/15/25 History Allergies Allergy/AdvReac Type Severity Reaction Status Date / Time No Known Allergies Allergy Verified 12/08/24 11:31 Current Medications Generic Name Dose Route Start Last Admin Trade Name Freq PRN Reason Stop Dose Admin Acetaminophen 650 mg 04/16/25 20:00 04/16/25 21:04 Acetaminophen 325 Mg Tablet PO 650 mg Q4H PRN Administration MILD PAIN OR INCREASE TEMP Allopurinol 100 mg 04/17/25 09:00 04/17/25 08:37 Allopurinol 100 Mg Tablet PO 100 mg DAILY ERNESTINA Administration Amlodipine Besylate 5 mg 04/16/25 13:25 04/17/25 08:37 Amlodipine 5 Mg Tablet PO 5 mg DAILY ERNESTINA Administration Aspirin 81 mg 04/17/25 09:00 04/17/25 08:38 Aspirin 81 Mg Ec Tablet PO 81 mg DAILY ERNESTINA Administration Atorvastatin Calcium 40 mg 04/16/25 21:00 04/16/25 20:03 Atorvastatin 40 Mg Tablet PO 40 mg BEDTIME ERNESTINA Administration Calcium Carbonate 500 mg 04/16/25 17:36 04/16/25 18:19 Calcium Carbonate 500 Mg Chew Tablet PO 500 mg Q4H PRN Administration INDIGESTION Furosemide 20 mg 04/17/25 09:00 04/17/25 08:38 Furosemide 20 Mg Tablet PO 20 mg DAILY ERNESTINA Administration Gabapentin 600 mg 04/16/25 15:00 04/17/25 15:26 Gabapentin 300 Mg Capsule PO 600 mg TID ERNESTINA Administration Latanoprost 1 drop 04/17/25 09:00 04/17/25 08:37 Latanoprost 0.005% Op Soln 2.5 Ml Btl EYE-BOTH 1 drop DAILY ERNESTINA Administration Metoprolol Tartrate 25 mg 04/16/25 18:00 04/17/25 08:38 Metoprolol Tartrate 25 Mg Tablet PO 25 mg BID ERNESTINA Administration Pantoprazole Sodium 40 mg 04/17/25 09:00 04/17/25 08:[address] 40 Mg Tablet PO 40 mg DAILY ERNESTINA Administration Prednisone 20 mg 04/17/25 09:00 04/17/25 08:38 Prednisone 5 Mg Tablet PO 20 mg DAILY ERNESTINA Administration PFSH Acute PFSH: Medical History High risk medication use Erosive osteoarthritis of both hands DJD (degenerative joint disease), lumbar Peripheral neuropathy GERD (gastroesophageal reflux disease) Gout Primary osteoarthritis of left knee Essential hypertension CAD (coronary artery disease) Hyperlipidemia CKD (chronic kidney disease) COPD (chronic obstructive pulmonary disease) Myocardial infarction Surgical History S/P carpal tunnel release S/P hysterectomy H/O neck surgery S/P knee replacement Family History Mother CAD (coronary artery disease) Father COPD (chronic obstructive pulmonary disease) Social History (Updated 09/07/24 @ 09:36 by Marysol Calhoun LPN) Smoking and tobacco/nicotine status: former use of tobacco/nicotine Quit status (tobacco/nicotine): has quit using Year quit tobacco: 1989 PPD x 6 Years Alcohol intake: never Substance/Drug Use: never Lives independently: Yes Household members: none Marital status: / Current occupational status: retired Do you think of yourself as: Straight/Heterosexual Current gender identity: Female Vitals/I&O/Wt Last Vital Signs Temp 98.0 F 04/17/25 15:49 Pulse 89 04/17/25 16:07 Resp 16 04/17/25 16:07 BP 109/62 04/17/25 15:49 Pulse Ox 91 04/17/25 16:07 O2 Del Method Room Air 04/17/25 16:07 04/17/25 04/17/25 04/17/25 06:59 14:59 22:59 Intake Total 1200 / 1200 Balance 1200 / 1200 Weight last 48 hrs Weight 175 lb 6.4 oz Weight 168 lb Weight 170 lb Data 04/17/25 02:43 04/17/25 02:43 A&P PDMP PDMP Reviewed: Not Reviewed Coding Level of Care Code Acute Code for Chg Fwd
[2025-04-17] MEDS: enoxaparin 80 mg/0.8 mL Syringe SUBCUT (17:55)
--- NOTE | 2025-04-17 19:03 | USCV_ITS ---
Latosha Lozano Age: 84 Gender: F : 1940 Exam Date: 04/17/2025 12:47 Ordering Phys: Mandie Miles MD Technologist: Amaury Koch [place]am Location[place] [facility] [place] Indication: nstemi BP: 118 / 70 HR: 82 Rhythm: Sinus Technical Quality: MEASUREMENTS (Male / Female) Normal Values 2D ECHO LV Diastolic Diameter PLAX 2.3 cm 4.2 - 5.9 / 3.9 - 5.3 cm IVS Diastolic Thickness 1.3 cm 0.6 - 1.0 / 0.6 - 0.9 cm IVS Systolic Thickness 1.1 cm LVPW Diastolic Thickness 0.9 cm 0.6 - 1.0 / 0.6 - 0.9 cm LVPW Systolic Thickness 1.3 cm LVOT Diameter 2.0 cm LV Ejection Fraction 2D Teich 62.9 % LV Ejection Fraction MOD 4C 70.9 % LV Ejection Fraction MOD 2C 65.8 % LV Ejection Fraction 2C AL 69.0 % LA Diameter 3.4 cm RA Systolic Volume 4C AL 44.4 ml RA Systolic Volume 4C MOD 44.0 ml LA Sys Volume AL 58.7 cm cubed LA Sys Volume Index AL 30.4 cm cubed/m squared Aorta at Sinotubular Diameter 2.6 cm IVC Diameter 1.5 cm M-MODE LA Ao Ratio MM 1.6 AV Cusp Separation MM 1.4 cm DOPPLER AV Peak Velocity 121.7 cm/s LVOT Peak Velocity 99.0 cm/s AV Area Cont Eq vti 2.0 cm squared AV Area Cont Eq pk 2.6 cm squared MV Peak Velocity 208.0 cm/s MV Area PHT 5.2 cm squared Mitral E to A Ratio 0.5 TR Peak Velocity 277.0 cm/s TR Peak Gradient 30.7 mmHg TR Mean Velocity 235.0 cm/s TR Mean Gradient 23.3 mmHg TR Velocity Time Integral 62.7 cm PV Peak Velocity 94.0 cm/s RV Ejection Time 0.3 s FINDINGS Left Ventricle Left ventricle is normal in size. LV systolic function is normal with EF of 60-65%. No regional wall motion abnormalities are seen. Right Ventricle Normal in size and function Right Atrium Normal in size Left Atrium Normal in size Mitral Valve Mitral valve is thickened and calcified. Mild to moderate mitral stenosis with mean gradient of 6.3mmHg. Mild mitral regurgitation Aortic Valve Grossly normal. No significant stenosis. Mild aortic regurgitation Tricuspid Valve Mild tricuspid regurgitation. Pulmonary artery systolic pressure is normal. Pulmonic Valve Not well visualized Pericardium Normal Aorta Normal in size IVC Appears to be normal CONCLUSIONS LV systolic function is normal with EF of 60-65%. Mild to moderate mitral stenosis. Mild mitral regurgitation. Mild aortic regurgitation Mild tricuspid regurgitation Compared to prior echcoardiogram from 11/2024, no significant changes are seen Jake Obando MD (Electronically Signed) Final Date: 17 April 2025 14:29 S
[2025-04-17] MEDS: atorvastatin 40 mg Tablet PO (19:44)
[2025-04-18] VITALS (10 sets, daily range): BP systolic 96–129; BP diastolic 59–98; PULSE 62–82; RESP 17; TEMP 36.5–36.6; O2SAT 91–94
[2025-04-18] MEDS: regadenoson 0.4 Mg/5 ml Syringe IVP (07:52)
[2025-04-18] MEDS: allopurinol 100 mg Tablet PO (09:27)
[2025-04-18] MEDS: gabapentin 300 mg Capsule 600 MG PO (09:27)
[2025-04-18] MEDS: FUROsemide 20 mg Tablet PO (09:27)
[2025-04-18] MEDS: predniSONE 5 mg Tablet 20 MG PO (09:27)
[2025-04-18] MEDS: aspirin 81 mg EC Tablet PO (09:27)
[2025-04-18] MEDS: pantoprazole DR 40 mg Tablet PO (09:27)
[2025-04-18] MEDS: enoxaparin 80 mg/0.8 mL Syringe SUBCUT (09:28)
[2025-04-18] MEDS: latanoprost 0.005% Op Soln 2.5 mL Btl 1 DROP EYE-BOTH (09:28)
[2025-04-18] MEDS: amlodipine 5 mg Tablet PO (09:30)
[2025-04-18] MEDS: metoprolol tartrate 25 mg Tablet PO (09:31)
--- NOTE | 2025-04-18 09:53 | PC.CHAP ---
Pastoral Care Encounter/Spiritual Assessment Type of Contact [] Declined sap basis administrator visit [] Patient/Family/Request visit [] Outpatient visit [] Follow-up visit [] Physician referral [] Code/Alert [x] Routine visit [] Staff referral [] Actively dying [] Patient sleeping [] Family support [] [] Out of room [] Palliative care [] [] Receiving care in room [] Pre-surgical visit [] Trauma [] Long length of stay [] ICU visit [] Other: Relational/Emotional Strength [] Patient feels connected with others/family/visitors/staff [] Distress [] Loneliness/isolation [] Abandonment Spirituality of Patient [] Person of Ama [] Attends Rastafari of their Ama [] Believes in Prayer [] Reads Bible or Restorationism materials [] There are Spiritual issues to be addressed Welding Setter Interventions [] Prayer [] Active listening [] Non-anxious presence [] Spiritual/emotional support [] Crisis/trauma care [] Spiritual counseling [] Bereavement support [] Provided bereavement packet [] Provided Bible/devotional materials [] Provided toy/stuffed animal, coloring book to patient or family member [] Provided Communion [] Anointing/Marina [] Salvation [] Completed spiritual assessment [] Other: Impact on Illness or Injury [] Angry [] Fearful [] Anxious [] Often cries [] Exhaustion [] Unable to work [] Unable to attend confucianism [] Unable to walk/stand [] Unable to read [] Unable to drive [] Unable to eat/drink [] Unable to sleep [] Unable to be with family [] Patient intubated [] Other: Summary precaution Time spent with patient
--- NOTE | 2025-04-18 10:12 | PC.SOCIAL ---
IMM Update Pg. 2 of IMM updated and copy provided.
--- NOTE | 2025-04-18 12:53 | PC.NURSE ---
application coordinator rounds- gave patient and family stroke education book at 1203
--- NOTE | 2025-04-18 12:54 | P.PN_ITS ---
<Statement entered by Jake Obando M.D - 04/20/25 09:38> Patient was cared for in conjunction with an advanced practice practitioner.? I reviewed the chart and all pertinent data including imaging, telemetry, and laboratory results.? I discussed the patient in detail with the advanced practice practitioner.? Please see? their note for progress note, testing results and agreed upon plan of care for the patient. Subjective 2 Subjective: Patient is doing well without any chest pressure or any strokelike episodes or increased shortness of breath. Stress test was done this morning that showed normal myocardial perfusion imaging without evidence of ischemia. BP is well controlled. Vitals/I&O/Wt Last Vital Signs Temp 97.8 F 04/18/25 11:42 Pulse 66 04/18/25 11:42 Resp 17 04/18/25 11:42 BP 121/82 04/18/25 11:42 Pulse Ox 94 04/18/25 11:42 O2 Del Method Room Air 04/18/25 11:42 04/17/25 04/18/25 04/18/25 22:59 06:59 14:59 Intake Total 600 / 1800 360 / 360 Balance 600 / 1800 360 / 360 Weight last 48 hrs Weight 175 lb Weight 175 lb 6.4 oz Physical Exam 2 Narrative: General: No apparent distress, healthy appearing, well nourished HENMT: normoceophalic Neck: No carotid bruit bilaterally Muskuloskeletal: Full ROM Respiratory: Normal respiratory effort, clear to auscultation bilaterally throughout all lung quintanilla, no use of accessory muscles Cardio: No JVD, regular rate, regular rhythm, S1 S2 normal, no murmurs, peripheral pulses 2+ radial palpated bilaterally GI: Normal to inspection, nondistended Extremities: Full ROM, normal, normal capillary refill, no cyanosis or edema Neuro: Alert and oriented x4, no focal motor deficits Psych: Affect normal, denies suicidal ideation, mental status grossly normal Skin: No rashes or lesions noted, no wounds Data 04/17/25 02:43 04/17/25 02:43 A&P Assessment and plan (1) Chest pain: (2) Uncontrolled hypertension: (3) NSTEMI (non-ST elevated myocardial infarction): Plan At this time patient is doing well with no chest pain. She denies shortness of breath. Her blood pressure stable. Stress test was negative for ischemia. Creatinine is stable. Would continue amlodipine 5 mg daily metoprolol 25 mg twice daily. From a heart standpoint patient may be discharged and follow-up in the clinic in 1 week. Most likely, patient's increased troponin with event was related to hypertensive urgency and demand ischemia. PDMP PDMP Reviewed: Not Reviewed Attestations 2 Medical Necessity Statement*: Deferred to primary. Coding Level of Care Code Acute Code for [facility] Diagnoses Chest pain, unspecified type R07.9 Chest pain type: unspecified Uncontrolled hypertension I10 NSTEMI (non-ST elevated myocardial infarction) I21.4
--- NOTE | 2025-04-18 13:17 | P.DS_ITS ---
Discharge Providers Date of Admission: 04/17/25 15:15 Date of Discharge: April 18, 2025 Attending Provider at Admission: Mandie Miles MD Attending Provider at Discharge: Susana Edwards MD Primary Care Provider: Reggie Reeves MD Diagnoses at Discharge Discharge Diagnosis (1) Chest pain: Status: Acute Qualifiers: Chest pain type: unspecified Qualified Code(s): R07.9 - Chest pain, unspecified (2) Uncontrolled hypertension: Status: Acute (3) NSTEMI (non-ST elevated myocardial infarction): Status: Acute Reason for Visit Reason for Visit: headache Hospital Course Hospital Course 84-year-old female was initially admitted to the hospital for headache and numbness over right side of face and arm. On arrival to ER blood pressure was quite high. It was up to 1 8190 systolic. She was not deemed a TNKase candidate. It was not thought to be a stroke. Most likely TIA versus hypertensive urgency causing numbness. Subsequently thereafter patient developed atypical chest pain radiating to the right side which also felt leg numbness. EKG troponin series were ordered. Troponin was elevated with delta of 36 positive which was deemed to be most likely demand ischemia after discussion with cardiology. Stress testing was performed which was negative for acute ischemia. Echo also did not show any wall motion abnormalities. Discussed with Dr. Villalpando in detail and at this time decided to discharge patient home as she has been chest pain-free and doing okay. She is currently on prednisone taper which I encouraged her to complete. She has been started on amlodipine 5 mg daily and metoprolol has been reduced to 25 twice daily. Patient okay to discharge home today to follow-up with cardiology as an outpatient. Physical Exam Narrative: General: No acute distress, AO x3 HEENT: PERRLA, pupils bilaterally equal and reactive, pallors not present Chest: Normal vesicular breath sounds, no added sounds, equal good air entry bilaterally CVS: S1-S2 regular, no murmurs, no tachycardia, no gallops, no rubs Abdomen: Soft, nontender, no organomegaly, bowel sounds present Neuro: No focal deficits, no facial deformity, AO x3, power 5/5 in all limbs Discharge Data Studies Completed and Pending Completed Studies During Hospitalization Category Date Time Status CT angio head neck [CT angio headneck* [id number]] Cat Scan 04/16/25 07:[address] head thrombolytic [id number] Stat Cat Scan 04/16/25 06:13 Completed Cardiac Stress Test MIBI [Sestamibi Stress Test Request Exams 04/17/25 15:17 Draft ] Routine XR chest 1V portable [id number] Stat Exams 04/16/25 06:13 Completed NM raymond perf SPECT r/s* [id number] Routine Nuc Med 04/18/25 15:17 Completed CV. echo complete* [id number] Routine Ultrasound 04/17/25 19:03 Completed Radiology Impressions Chest X-Ray 04/16/25 06:13 IMPRESSION: No acute cardiopulmonary findings. Head CT 04/16/25 06:13 IMPRESSION: No acute intracranial findings. ASSESSMENT: ASPECTS ([place] Stroke Program Early CT Score) is 10. Head/Neck CTA 04/16/25 07:03 IMPRESSION: No large vessel stenosis or occlusion. IMPRESSION: No hemodynamically significant arterial stenosis or occlusion in the arteries of the neck. REFERENCES: NASCET CRITERIA. The degree of stenosis in the cervical segment of the internal carotid artery is based on NASCET criteria. Normal is no stenosis. Mild is less than 50% stenosis. Moderate is 50-69% stenosis. Severe is 70% to 99% stenosis. Total occlusion is no detectable patent lumen. ADDENDUM: 04/16/25 0814 COMMENT: THIS REPORT CONTAINS FINDINGS THAT MAY BE CRITICAL TO PATIENT CARE. The exam findings were verbally communicated by me to BERNIE SUERO via telephone conference at 8:12 AM CDT on 04/16/2025. The findings were acknowledged and understood. Laboratory Results WBC 8.64 10^3/uL (3.29-11.43) 04/17/25 02:43 RBC 3.96 10^6/uL (3.85-5.65) 04/17/25 02:43 Hgb 12.20 g/dL (11.27-16.99) 04/17/25 02:43 Hct 37.3 % (36-47) 04/17/25 02:43 MCV 94.2 fl (85-98) 04/17/25 02:43 MCH 30.8 pg (27-33) 04/17/25 02:43 MCHC 32.7 g/dL (30-55) 04/17/25 02:43 RDW 15.4 % (12.1-15.1) H 04/17/25 02:43 Plt Count 237 10^3/cmm (157-399) 04/17/25 02:43 MPV 10.1 fL (7.4-10.4) 04/17/25 02:43 Neut % (Auto) 61.1 % 04/17/25 02:43 Lymph % (Auto) 20.8 % 04/17/25 02:43 [place] % (Auto) 12.0 % 04/17/25 02:43 Eos % (Auto) 5.4 % 04/17/25 02:43 Baso % (Auto) 0.2 % 04/17/25 02:43 Neut # (Auto) 5.27 10^3/uL (1.8-7.7) 04/17/25 02:43 Lymph # (Auto) 1.8 10^3/uL (0.8-4.8) 04/17/25 02:43 [place] # (Auto) 1.0 10^3/uL (0.2-0.9) H 04/17/25 02:43 Eos # (Auto) 0.5 10^3/uL (0.0-0.8) 04/17/25 02:43 Baso # (Auto) 0.0 10^3/uL (0.0-0.1) 04/17/25 02:43 Nucleated RBC % (auto) 0 % 04/17/25 02:43 Nucleated RBCs # 0.0 /100WBC 04/17/25 02:43 ESR 7 mm/hr (0-15) 04/16/25 06:06 PT 13.00 SECONDS (12.1-14.9) 04/16/25 06:06 INR 0.92 (0.8-1.2) 04/16/25 06:06 APTT 25.2 SECONDS (23.9-36.7) 04/16/25 06:06 D-Dimer 1.05 ug/mLFEU (0-0.59) H 04/16/25 09:57 Sodium 135 mmol/L (136-145) L 04/17/25 02:43 Potassium 4.7 mmol/L (3.5-5.1) 04/17/25 02:43 Chloride 98 mmol/L (98-107) 04/17/25 02:43 Carbon Dioxide 26 mmol/L (22-29) 04/17/25 02:43 Anion Gap 15.7 (5-19) 04/17/25 02:43 BUN 33 mg/dL (8-23) H 04/17/25 02:43 Creatinine 1.1 mg/dL (0.5-0.9) H 04/17/25 02:43 GFR Calculation Not Reportable 04/17/25 02:43 Glucose 77 mg/dL (65-115) 04/17/25 02:43 POC Glucose 92 mg/dL (70-110) 04/16/25 07:03 Estimat Average Glucose 111 04/17/25 02:43 Hemoglobin A1c 5.5 % (4.0-6.0) 04/17/25 02:43 Calculated Osmolality 286 mOsm/kg (285-295) 04/17/25 02:43 Calcium 8.8 mg/dL (8.5-10.5) 04/17/25 02:43 Magnesium 2.2 mg/dL (1.7-2.3) 04/16/25 09:57 Total Bilirubin 0.4 mg/dL (0.15-1.2) 04/17/25 02:43 AST 246 U/L (0-32) H 04/17/25 02:43 ALT 189 U/L (0-33) H 04/17/25 02:43 Alkaline Phosphatase 85 U/L (35-105) 04/17/25 02:43 Creatine Kinase 56 U/L (26-192) 04/16/25 11:34 Troponin T Baseline 72 ng/L (0-10) H 04/16/25 09:57 Troponin T 120 Minute 81.61 ng/L (0-10) H 04/16/25 11:34 Delta Troponin T 9.61 ABS# (0-10) 04/16/25 11:34 Troponin T Hi Sens 6Hr 109.8 ng/L (0-10) H 04/16/25 15:48 Troponin T Hi Sens 6Hr Delta 37.8 ng/L (0-12) H* 04/16/25 15:48 C-Reactive Protein 3.0 mg/L (0.0-4.9) 04/16/25 06:06 Total Protein 6.0 g/dL (6.6-8.7) L 04/17/25 02:43 Albumin 3.6 g/dL (3.5-5.2) 04/17/25 02:43 Globulin 2.4 g/dL (1.3-4.6) 04/17/25 02:43 Triglycerides 167 mg/dL (0-150) H 04/17/25 02:43 Cholesterol 144 mg/dL (0-200) 04/17/25 02:43 LDL Cholesterol, Calc 57 mg/dL (50-129) 04/17/25 02:43 HDL Cholesterol 54 mg/dL (60-100) L 04/17/25 02:43 LDL/HDL Ratio 1.06 RATIO (0.00-3.22) 04/17/25 02:43 Cholesterol/HDL Ratio 2.67 mg/dL (0.0-4.40) 04/17/25 02:43 TSH 0.98 uIU/mL (0.27-4.20) 04/16/25 09:57 Urine Color Yellow (Yellow) 04/16/25 07:42 Urine Appearance Clear (CLEAR) 04/16/25 07:42 Urine pH 6.0 (5-7) 04/16/25 07:42 Ur Specific [place] 1.012 (1.005-1.030) 04/16/25 07:42 Urine Protein 2+ (Negative) A 04/16/25 07:42 Urine Glucose (UA) Negative (Normal) 04/16/25 07:42 Urine Ketones Negative (Negative) 04/16/25 07:42 Urine Blood Trace (Negative) A 04/16/25 07:42 Urine Nitrate Negative (Negative) 04/16/25 07:42 Urine Bilirubin Negative (Negative) 04/16/25 07:42 Urine Urobilinogen 0.2 mg/dL (Negative) 04/16/25 07:42 Ur Leukocyte Esterase Negative (Negative) 04/16/25 07:42 Urine RBC 0-2 /hpf (0-2) 04/16/25 07:42 Urine WBC 0-5 /hpf (0-5) 04/16/25 07:42 Ur Squamous Epith Cells 0-5 /hpf (0-5) 04/16/25 07:42 Amorphous Sediment Not Reportable 04/16/25 07:42 Urine Bacteria None seen /hpf (NONE) 04/16/25 07:42 Hyaline Casts 0-4 /lpf H 04/16/25 07:42 Influenza A (PCR) Negative (Negative) 04/16/25 07:05 Influenza Type B (PCR) Negative (Negative) 04/16/25 07:05 RSV (PCR) Negative (Negative) 04/16/25 07:05 SARS-CoV-2 (PCR) Negative (Negative) 04/16/25 07:05 Vitals Last Vital Signs Temp 97.8 F 04/18/25 11:42 Pulse 66 04/18/25 11:42 Resp 17 04/18/25 11:42 BP 121/82 04/18/25 11:42 Pulse Ox 94 04/18/25 11:42 O2 Del Method Room Air 04/18/25 11:42 Discharge Plan Discharge Patient Disposition: Home Condition: Stable Prescriptions: New atorvastatin 40 mg Tablet 40 mg PO BEDTIME Qty: 30 0RF Continued allopurinol 100 mg tablet 100 mg PO DAILY albuterol sulfate [Ventolin HFA] 90 mcg/actuation HFA aerosol inhaler 2 puff INHALATION Q6H PRN (Reason: Shortness Of Breath Or Wheezing) omeprazole 40 mg capsule,delayed release(DR/EC) 40 mg PO DAILY acetaminophen-codeine 300-15 mg tablet 1 tab PO Q8H PRN (Reason: Pain) glucosamine sulfate 1,000 mg capsule 1,000 mg PO DAILY Rx Instructions: administer with a meal gabapentin 300 mg capsule 600 mg PO QID latanoprost 0.005 % drops 1 drp ophthalmic (eye) DAILY multivitamin Tablet 1 tab PO DAILY amlodipine 5 mg tablet 5 mg PO DAILY Qty: 180 3RF furosemide 20 mg tablet 20 mg PO DAILY Qty: 45 3RF prednisone 5 mg tablet See Rx Instructions .ROUTE .COMPLEX Rx Instructions: TAKE 4 TABLETS BY MOUTH DAILY FOR 3 DAYS, THEN 3 TABLETS DAILY FOR 3 DAYS, THEN 2 TABLETS DAILY FOR 3 DAYS, THEN 1 TABLET DAILY FOR 3 DAYS. aspirin [[place] Low Dose Aspirin] 81 mg Tablet,Delayed Release (Dr/Ec) 81 mg PO DAILY Changed metoprolol tartrate 25 mg tablet 25 mg PO BID Qty: 10 0RF Held potassium chloride 8 mEq tablet extended release 8 meq PO DAILY Hold Instructions: see pcp, repeat labs Discontinued simvastatin 20 mg tablet 20 mg PO DAILY acetaminophen [Tylenol Extra Strength] 500 mg Tablet 1,000 mg PO Q6H PRN (Reason: Fever Or Pain) Discharge Orders: Discharge Order (Routine); Ordered 04/18/25 Ordered By: Susana Edwards Other Ambulatory Orders: Basic Metabolic Panel (Routine) Timeframe: 3 Days Facility: [facility] - Location: Lab - Main Lab Ordered By: Susana Edwards Referrals: Lucille Delgado FNP [Nurse Practitioner, Cardiology] - 05/02/25 2:30 pm Referral Note: Reggie Reeves MD [Primary Care Provider, Family Practice] - 04/21/25 1:30 pm Discharge Diet: Cardiac Discharge Activity: Resume usual activity Patient Instructions: Atorvastatin (By mouth), Chest Pain (DC), Chest Pain Stoplight, Opioid Safety, Stroke Stoplight, TIA Discharge Attestations Time Spent in Discharge Care*: greater than 30 min Quality Metrics Clinical Quality Measures [ No reported AMI, CVA or VTE this stay] Coding Level of Care Code Acute Code for Chg Fwd Diagnoses Chest pain, unspecified type R07.9 Chest pain type: unspecified Uncontrolled hypertension I10 NSTEMI (non-ST elevated myocardial infarction) I21.4
--- NOTE | 2025-04-18 15:17 | NMCV_ITS ---
NM raymond perf SPECT r/s* [id number] Latosha Lozano Age: 84 Gender: F : 1940 Exam Date: 04/18/2025 07:11 Ordering Phys: Mandie Miles MD Technologist: MARICRUZ Hinton Exam Location: [facility] Indications: cp STRESS TEST Please see separate stress test [facility] for full findings IMAGE PROTOCOL Rest/Stress 1 Lexiscan Day Radiopharmaceutical Dose (mCi) Administration Site Administered by Rest: Tc-99m 11 IV Sarah Griffin [employer] Sestamibi Stress:Tc-99m 32.6 IV Sarah Griffin, [employer] Sestamibi Rest: 18-Apr-2025 60 Discovery 630 Stress: 18-Apr-2025 30 Discovery 630 0.4mg Lexiscan. Images obtained in supine and prone position. SPECT RESULTS Technical Quality: Good Raw Data Analysis: Normal Image Corrections: No attenuation or motion correction applied Summed Stress Score: 2 Summed Rest Score: 2 Summed Difference Score: 0 PERFUSION FINDINGS SPECT images demonstrate homogeneous tracer distribution throughout the myocardium. FUNCTIONAL RESULTS (calculated via Gated SPECT) Stress Image LV EF (%): 95 Stress EDV (mL):41 TID: 0.68 Stress ESV (mL):2 FUNCTIONAL FINDINGS: There is normal left ventricular systolic function. IMPRESSIONS 1. Normal myocardial perfusion imaging with no evidence of ischemia 2. LV systolic function is normal Jake Obando MD (Electronically Signed) Final Date: 18 April 2025 09:18 S
== END 2025-04-18 14:24 | disposition home or self-care (01) | DRG 69 ==
LOC: ER 08:57 → MEDSURG 10:09
PROVIDERS: Admitting Provider Student in an Organized Health Care Education/Training Program; Emergency Provider Emergency Medicine; PCP Family Medicine; Visit Provider Internal Medicine
DX: G45.9 Transient cerebral ischemic attack, unspecified (principal); I24.89 Other forms of acute ischemic heart disease; I16.0 Hypertensive urgency; G62.9 Polyneuropathy, unspecified; J44.9 Chronic obstructive pulmonary disease, unspecified; I12.9 Hypertensive chronic kidney disease with stage 1 through stage 4 chronic kidney disease, or unspecified chronic kidney disease; N18.9 Chronic kidney disease, unspecified; E78.5 Hyperlipidemia, unspecified; I25.10 Atherosclerotic heart disease of native coronary artery without angina pectoris; M17.12 Unilateral primary osteoarthritis, left knee; M10.9 Gout, unspecified; K21.9 Gastro-esophageal reflux disease without esophagitis; M47.816 Spondylosis without myelopathy or radiculopathy, lumbar region; L25.5 Unspecified contact dermatitis due to plants, except food; M19.042 Primary osteoarthritis, left hand; M19.041 Primary osteoarthritis, right hand; Z79.82 Long term (current) use of aspirin; Z87.891 Personal history of nicotine dependence; Z11.52 Encounter for screening for COVID-19; Z79.899 Other long term (current) drug therapy; I25.2 Old myocardial infarction
CPT/HCPCS: 12345; 36415; 36416; 70450; 70496; 70498; 71045; 78452; 80053; 80061; 81001; 82550; 82962; 83036; 83735; 84443; 84484; 85025; 85378; 85610; 85651; 85730; 86140; 87637; 92523; 92610; 93005; 93017; 93306; 96372; 96375; 97110; 97116; 97161; 97165; 97530; 99285; A9500; G0378; J1650; J2785; J7512; J9999

== ENCOUNTER → 2025-05-02 12:28 | Outpatient (BNVA) | payer MEDICARE, OTHER, SELFPAY | PROVIDERS: PCP Family Medicine; Visit Provider Nurse Practitioner Family | DX: Z09 Encounter for follow-up examination after completed treatment for conditions other than malignant neoplasm (principal); E78.5 Hyperlipidemia, unspecified; R60.9 Edema, unspecified; Z87.891 Personal history of nicotine dependence | CPT/HCPCS: 99214 ==

== ENCOUNTER → 2025-06-29 16:11 | Outpatient (BNVA) | payer MEDICARE, OTHER, SELFPAY | PROVIDERS: PCP Family Medicine; Visit Provider Internal Medicine Cardiovascular Disease | DX: R07.89 Other chest pain (principal); I10 Essential (primary) hypertension; J44.9 Chronic obstructive pulmonary disease, unspecified; Z87.891 Personal history of nicotine dependence; I25.2 Old myocardial infarction | CPT/HCPCS: 99214 ==

== ENCOUNTER → 2025-07-20 08:22 | Outpatient (BNVA) | payer MEDICARE, OTHER, SELFPAY | PROVIDERS: PCP Family Medicine; Visit Provider Student in an Organized Health Care Education/Training Program | DX: M19.012 Primary osteoarthritis, left shoulder (principal) | CPT/HCPCS: 73030; 99214 ==

== ENCOUNTER → 2025-08-05 10:36 | Outpatient (BNVA) | payer MEDICARE, OTHER, SELFPAY | PROVIDERS: PCP Family Medicine; Visit Provider Student in an Organized Health Care Education/Training Program | DX: M19.012 Primary osteoarthritis, left shoulder (principal); Z71.89 Other specified counseling | CPT/HCPCS: 20610; 77002; J3301; J9999 ==

== ENCOUNTER → 2025-10-26 12:41 | Outpatient (BNVA) | payer MEDICARE, OTHER, SELFPAY | PROVIDERS: PCP Family Medicine; Referring Provider Family Medicine; Visit Provider Internal Medicine | DX: J44.89 Other specified chronic obstructive pulmonary disease (principal); S69.91XA Unspecified injury of right wrist, hand and finger(s), initial encounter; X58.XXXA Exposure to other specified factors, initial encounter; Z87.891 Personal history of nicotine dependence; J44.1 Chronic obstructive pulmonary disease with (acute) exacerbation; J44.9 Chronic obstructive pulmonary disease, unspecified; T78.40XA Allergy, unspecified, initial encounter | CPT/HCPCS: 99214 ==

== ENCOUNTER 2025-11-01 09:22 | Outpatient (CLI) | payer MEDICARE, OTHER, SELFPAY ==
[2025-11-01 10:37] LABS: Hematocrit 36.0 % (36-47); Hemoglobin 12.30 g/dL (11.27-16.99); Mean Corpuscular HGB Conc 34.2 g/dL (30-55); Mean Corpuscular Hemoglobin 30.7 pg (27-33); Mean Corpuscular Volume 89.8 fl (85-98); Nucleated Red Blood Cells % 0 %; Platelet Count 512 10^3/cmm (157-399); Red Blood Count 4.01 10^6/uL (3.85-5.65); White Blood Count 13.41 10^3/uL (3.29-11.43)
== END 2025-11-01 09:23 | disposition home or self-care (01) ==
LOC: RT 09:34
PROVIDERS: PCP Family Medicine; Visit Provider Internal Medicine
DX: T78.40XA Allergy, unspecified, initial encounter (principal); X58.XXXA Exposure to other specified factors, initial encounter; J44.9 Chronic obstructive pulmonary disease, unspecified
CPT/HCPCS: 36415; 85025; 86003; 94618